=== PATIENT | male | born 1935 | race African-American/Black ===

== ENCOUNTER 2020-08-29 15:41 | Emergency (ER) | payer MEDICARE, SELFPAY ==
[2020-08-29] VITALS (8 sets, daily range): BP systolic 146–175; BP diastolic 75–80; PULSE 73–74; RESP 17–18; TEMP 35.9–36.9; O2SAT 99–100
--- NOTE | ~2020-08-29 | XR_ITS ---
EXAMINATION: XR abdomen obstructive series EXAM DATE: 08/29/2020 17:25 INDICATION: Constipation X 3 hours ago, right lower quadrant pain. Hemorrhoids. TECHNIQUE: Frontal upright projection of the upper abdomen, frontal projection of the lower abdomen f or interpretation. There is no prior study for comparison. FINDINGS: Moderate amount of colonic gas, small amount of stool. No small bowel dilation, nonobstru ctive bowel gas pattern. There are no suspicious calcifications identified. There is no organomeg ruma suspected. There are bony degenerative changes. There is no free intraperitoneal air. The l heidi bases are clear. IMPRESSION: Unremarkable abdomen x-ray exam. Reviewed, dictated and finalized at location A.
--- NOTE | 2020-08-29 17:55 | ED.GENADULT ---
HPI - General Adult General Chief complaint: Unspecified Stated complaint: Constipation 3-4 days Time Seen by Provider: 08/29/20 17:12 Source: patient Mode of arrival: ambulatory Limitations: no limitations History of Present Illness HPI narrative: This is a 84 year old male that presents to the ER for constipation. Reports ongoing problems with constipation. Reports his last bowel movement was 2 days ago. Reports he feels the need to have a bowel movement, but is unable to. He has been using suppositories with little relief. Denies fever, abdominal pain, hematochezia, vomiting, or dysuria. Related Data Home Medications Medication Instructions Recorded Confirmed apixaban [Eliquis] 5 mg PO BID 08/29/20 08/29/20 bimatoprost [Lumigan] 1 drp EACH EYE QPM 08/29/20 08/29/20 hydralazine 25 mg PO BID 08/29/20 08/29/20 pregabalin 300 mg PO BID 08/29/20 08/29/20 tamsulosin 0.8 mg PO HS 08/29/20 08/29/20 timolol maleate 1 drp EACH EYE BID 08/29/20 08/29/20 Allergies Allergy/AdvReac Type Severity Reaction Status Date / Time No Known Allergies Allergy Unknown Unverified 10/26/17 17:19 Review of Systems Review of Systems: Narrative: CONSTITUTIONAL: Denies fever GASTROINTESTINAL: Denies abdominal pain, nausea, vomiting GENITOURINARY: Denies dysuria All systems reviewed & are unremarkable except as noted in HPI and below PMFSH Past Medical History Medical History (Updated 08/29/20 @ 19:07 by Ester Holt PA-C) History of BPH History of CVA (cerebrovascular accident) History of DVT (deep vein thrombosis) History of hypertension Social History Social History Gender identity (if verbalized by the patient): Male Exam Narrative: Exam Narrative: GENERAL: Well-appearing, well-nourished, and in no acute distress. HEAD: Normocephalic, atraumatic. EYES: EOMI. CHEST: Clear to auscultation. No respiratory distress. No wheezes rales or rhonchi HEART: Regular rate and rhythm. No murmur heard. Normal peripheral pulses. ABDOMEN: Soft, nontender, nondistended, normal active bowel sounds. EXTREMITIES: Normal range of motion. No edema. SKIN: Warm, dry, no rash. NEURO: No focal deficits. Alert and oriented x3. PSYCH: Normal mood and affect RECTAL: No hemorrhoids or fissures present Course Vital Signs Vital signs: Vital Signs Temperature 96.6 F L 08/29/20 15:43 Pulse Rate 74 08/29/20 15:43 Respiratory Rate 17 08/29/20 15:43 Blood Pressure 174/80 H 08/29/20 15:43 Pulse Oximetry 100 08/29/20 15:43 Temperature 96.6 F L 08/29/20 15:43 Pulse Rate 74 08/29/20 15:43 Respiratory Rate 17 08/29/20 15:43 Blood Pressure 146/77 H 08/29/20 17:32 Pulse Oximetry 100 08/29/20 17:45 Medical Decision Making MDM Narrative Medical decision making narrative: Patient presents the emergency department for constipation. He is afebrile and nontoxic-appearing. Abdominal exam is benign. Abdomen x-ray is unremarkable. While in the ED patient was able to have a bowel movement and reports he feels better. Would like to be discharged. Was instructed to follow-up with his primary doctor. He was given warnings to return to the ER Vital Signs Vital Signs: Vital Signs Temperature 96.6 F L 08/29/20 15:43 Pulse Rate 74 08/29/20 15:43 Respiratory Rate 17 08/29/20 15:43 Blood Pressure 174/80 H 08/29/20 15:43 Pulse Oximetry 100 08/29/20 15:43 Temperature 96.6 F L 08/29/20 15:43 Pulse Rate 74 08/29/20 15:43 Respiratory Rate 17 08/29/20 15:43 Blood Pressure 146/77 H 08/29/20 17:32 Pulse Oximetry 100 08/29/20 17:45 Imaging Data Radiologist's impression: ITS Impressions Abdomen X-Ray 08/29/20 17:32 IMPRESSION: Unremarkable abdomen x-ray exam. Critical Care Time Critical Care Time Critical Care Time: No Discharge Plan Discharge Clinical Impression: Constipation Qualifiers: Constipation type: unspecified constipation type Qualified Code(s): K59.00 - C
[2020-08-29] MEDS: polyethylene glycoL 3350 17 GM POWD.PACK PO (18:29)
--- NOTE | 2020-08-29 19:36 | PC.NURSE ---
Pt presented to ED due to constipation and was able to successfully have a bowel movement. Pt states that he feels better and is ready to go home. Pt to call for ride back home and is prepared for dc. Pt noted to be alert and oriented x4, vitals are stable and pt in no obvious distress at this time.
== END 2020-08-29 19:40 | disposition home or self-care (01) ==
PROVIDERS: Emergency Provider Emergency Medicine
DX: K59.00 Constipation, unspecified (principal); N40.0 Benign prostatic hyperplasia without lower urinary tract symptoms; Z86.73 Personal history of transient ischemic attack (TIA), and cerebral infarction without residual deficits; Z86.718 Personal history of other venous thrombosis and embolism; I10 Essential (primary) hypertension
CPT/HCPCS: 74019; 99283

== ENCOUNTER 2021-07-29 11:11 | Observation (INO) | payer MEDICARE, SELFPAY ==
[2021-07-29] VITALS (16 sets, daily range): BP systolic 150–182; BP diastolic 75–99; PULSE 88–115; RESP 7–18; TEMP 36.7–37.5; O2SAT 92–99
--- NOTE | ~2021-07-29 | CT_ITS ---
EXAMINATION: CT abdomen pelvis w con INDICATION: Abdominal pain and vomiting TECHNIQUE: Computed tomographic images of the abdomen and pelvis were obtained after the administrati on of 100 cc of Omnipaque 350 intravenous contrast. The dose-length product (DLP) was 788.55 mGy-cm. Automated exposure control and iterative reconstruction technique were employed. COMPARISON: 03/14/2016 FINDINGS: Minimal dependent atelectasis is present in the lung bases. The heart size is normal. Bilat eral gynecomastia is noted. Cysts of the liver measure up to 1.3 cm the spleen, pancreas, and adrenal glands are normal. Stones are present in the nondistended gallbladder. Cysts of the kidneys measure up to 4.5 cm on the right. No pathologically enlarged abdominal or pelvic lymph nodes are identified. There is no free intraperitoneal gas or evidence of bowel obstruction. There is marked enlargement o f the prostate. The appendix is normal. There is a small umbilical hernia containing a short segment of the anterior wall of a small bowel loop. There is severe lumbar spondylosis at L4-5. IMPRESSION: 1. Small umbilical hernia containing a short segment of the anterior wall of a nonobstructed small wil wel loop. Reviewed, dictated and finalized at location A. IMPRESSION: 1. Small umbilical hernia containing a short segment of the anterior wall of a nonobstructed small bowel loop.
--- NOTE | ~2021-07-29 | XR_ITS ---
EXAMINATION: XR chest 1V portable DATE: 07/29/2021 12:05 INDICATION: Weakness. TECHNIQUE: A single frontal view of the chest was obtained. COMPARISON: Chest CT 11/22/2017 FINDINGS: There is mild atelectasis at the lung bases. No pleural effusion or pneumothorax. The heart size is normal. IMPRESSION: 1. Mild atelectasis at the lung bases. Reviewed, dictated and finalized at location A.
--- NOTE | 2021-07-29 11:28 | ECG_ITS ---
Measurements Intervals Fisher Rate: 90 P: 42 [place]: 228 QRS: -25 QRSD: 149 T: -16 QT: 382 QTc: 468 Interpretive Statements SINUS RHYTHM WITH FIRST DEGREE AV BLOCK WITH OCCASIONAL VENTRICULAR PREMATURE COMPLEXES POSSIBLE LEFT ATRIAL ENLARGEMENT [-0.1mV P WAVE IN V1/V2] BORDERLINE LEFT AXIS DEVIATION [QRS AXIS < -20] RIGHT BUNDLE BRANCH BLOCK POSSIBLE LEFT VENTRICULAR HYPERTROPHY [VOLTAGE CRITERIA PLUS LAE OR QRS WIDENING] ABNORMAL ECG NO PREVIOUS ECG AVAILABLE FOR COMPARISON Electronically Signed On 07-29-2021 16:59:29 CDT by Eloy Phipps M.D.
[2021-07-29 11:35] LABS: Glucose Point of Care 153 mg/dl (65-105)
[2021-07-29] MEDS: SODIUM CHLORIDE 0.9% IV 2,000 ML 999 ML IV CONT (11:49)
[2021-07-29] MEDS: ONDANSETRON INJ 4 MG/2 ML VIAL IV PUSH ×3 (11:50→17:13)
[2021-07-29 11:54] LABS: Basophils Absolute Auto 0.1 K/mm3 (0.0-0.1); Basophils Percent Auto 0.4 % (0.2-1.2); Hematocrit 48.1 % (42.0-52.0); Hemoglobin 15.9 g/dL (14.0-18.0); Immature Granulocyte Absolute 0.05 K/mm3 (0.00-0.031); Immature Granulocyte Percent A 0.4 % (0-0.5); Immature Platelet Fraction Pct 14.2 % (0.9-11.2); Lymphocytes Percent Auto 7.8 % (18.3-44.2); Mean Corpuscular HGB Conc 33.1 g/dl (32-36); Mean Corpuscular Hemoglobin 30.9 pg (26-34); Mean Corpuscular Volume 93.6 fl (80-100); Mean Platelet Volume 13.1 fl (7.4-10.4); Monocytes Absolute Auto 0.4 K/mm3 (0.1-0.6); Monocytes Percent Auto 2.6 % (2.6-8.5); Neutrophils Absolute Auto 12.5 K/mm3 (1.3-6.7); Neutrophils Percent Auto 88.8 % (45.5-73.1); Platelet Count Result 159 k/mm3 (150-375); Red Blood Count 5.14 M/mm3 (4.6-6.20); Red Cell Distribution Width 15.5 % (11.5-14.5); White Blood Count 14.1 K/mm3 (4.5-10.0)
--- NOTE | 2021-07-29 11:55 | PC.NURSE ---
Pt attempting to give urine sample at this time
[2021-07-29 12:01] LABS: Alanine Aminotransferase 18 U/L (4-50); Albumin Level 4.5 g/dL (3.5-5.1); Alkaline Phosphatase 76 U/L (38-126); Anion Gap 8 mmol/L (8-16); Aspartate Amino Transferase 43 U/L (17-59); Bilirubin,Total 0.7 mg/dL (0.2-1.3); Blood Urea Nitrogen 15 mg/dL (9-20); Calcium 9.9 mg/dL (8.4-10.2); Carbon Dioxide 27 mmol/L (22-30); Chloride 106 mmol/L (98-107); Estimated CRCL calculation 38 ml/min; Estimated Glomerular Filt Rate > 60; Glucose 168 mg/dL (65-110); Lactic Acid Reflex 2.5 mmol/L (0.7-2.1); Lipase 60 U/L (23-300); Sodium 141 mmol/L (137-145)
--- NOTE | 2021-07-29 12:22 | ED.NAVMDI ---
HPI - Nausea/Vomiting/Diarrhea General Chief complaint: Nausea/Vomiting/Diarrhea Stated complaint: vomiting Time Seen by Provider: 07/29/21 11:19 Source: patient and family Mode of arrival: wheelchair Limitations: other History of Present Illness HPI Narrative: This is an 85 year old male who presents for evaluation of nausea and vomiting. Patient's is at bedside to help with history. Patient states he is having difficulty talking due to weakness. Patient denies nausea, vomiting and upper abdominal pain this morning. He denies diarrhea. He denies chest pain or shortness of breath. Related Data Home Medications Medication Instructions Recorded Confirmed apixaban [Eliquis] 5 mg PO BID 08/29/20 07/29/21 pregabalin 300 mg PO BID 08/29/20 07/29/21 tamsulosin 0.4 mg PO HS 08/29/20 07/29/21 ascorbic acid (vitamin C) [Vitamin 500 mg PO DAILY 07/29/21 07/29/21 C] brinzolamide-brimonidine 1 drp EACH EYE DAILY 07/29/21 07/29/21 [Simbrinza] cholecalciferol (vitamin D3) 125 mcg PO DAILY 07/29/21 07/29/21 [Vitamin D3] finasteride 5 mg PO DAILY 07/29/21 07/29/21 latanoprost 1 drp EACH EYE HS 07/29/21 07/29/21 vitamin B complex [B Complex] 1 cap PO DAILY 07/29/21 07/29/21 Allergies Allergy/AdvReac Type Severity Reaction Status Date / Time No Known Allergies Allergy Unknown Unverified 07/29/21 11:52 Review of Systems Review of Systems: All systems reviewed & are unremarkable except as noted in HPI and below PMFSH Past Medical History Medical History (Updated 07/29/21 @ 20:35 by Naomi Abrams MD) History of BPH History of CVA (cerebrovascular accident) History of DVT (deep vein thrombosis) History of hypertension Surgical History Surgical History (Updated 07/29/21 @ 12:28 by Naomi Abrams MD) Previous back surgery Family History Family History (Updated 07/29/21 @ 18:04 by Lena Aguiar RN) Mother Alzheimer disease Sibling Cerebrovascular accident Social History Social History Smoking status: Never smoker Alcohol intake: never Substance use: never Gender identity (if verbalized by the patient): Male Spiritual care concerns: No Exam Const: General: alert and ill appearing Orientation/consciousness: patient oriented x3 Eyes: EOM: EOMs intact bilaterally Resp: Effort & Inspection: normal respiratory effort and no retractions Auscultation: clear to auscultation bilaterally Cardio: Rate: regular rate Rhythm: regular rhythm GI: GI Palp: Yes Soft to palpation, Yes Tenderness to palpation present (GI), No Guarding due to palpation present (GI) and No Rigid due to palpation Auscultation: Hypoactive bowel sounds present Neuro: General: patient oriented x3 and moves all extremities Psych: Mental Status: mental status grossly normal Affect: normal affect Course Reevaluation(s) Reevaluation #1: Patient still reports nausea. Labs shows some mild lactic acidosis and dehydration. Will admit for IVF. Non surgical abdominal exam. I have discussed with patient that he will be admitted. Date: 07/29/21 Time: 15:30 Vital Signs Vital signs: Vital Signs Temperature 98.0 F 07/29/21 11:19 Pulse Rate 98 07/29/21 11:19 Respiratory Rate 18 07/29/21 11:19 Blood Pressure 182/98 H 07/29/21 11:19 Pulse Oximetry 95 07/29/21 11:19 Temperature 99.0 F 07/29/21 19:39 Pulse Rate 108 H 07/29/21 19:39 Respiratory Rate 18 07/29/21 19:39 Blood Pressure 150/85 H 07/29/21 19:39 Pulse Oximetry 94 07/29/21 19:39 MDM - Nausea/Vomiting/Diarrhea Lab Data Attestation: I reviewed the patient's lab results. Result diagrams: 07/29/21 11:46 07/29/21 11:46 Labs: Lab Results 07/29/21 07/29/21 07/29/21 Range/Units 11:32 11:46 11:46 WBC 14.1 H (4.5-10.0) K/mm3 RBC 5.14 (4.6-6.20) M/mm3 Hgb 15.9 (14.0-18.0) g/dL Hct 48.1 (42.0-52.0) % MCV 93.6 (80-100) fl MCH 30.9 (26-34) p
[2021-07-29 12:28] LABS: Appearance Urine Clear (Clear); Bilirubin Urine Negative (Negative); Blood Urine 1+ (Negative); Color Urine Yellow (Yellow); Glucose Urine UA Negative (Negative); Ketones Urine Negative (Negative); Leukocyte Esterase Ur Negative LEU/UL (Negative); Nitrate Urine Negative (Negative); Protein Urine 3+ mg/dL (Negative); Specific Grav Ur >= 1.030 (1.001-1.035); Urobilinogen Urine 0.2 mg/dL (<2.0); pH Urine 5.5 (5.0-9.0)
[2021-07-29 12:34] LABS: Mucus Urine Rare /lpf; RBC Urine 0-2 /hpf (0-2); Squamous Epithelial Cell Urine Rare /hpf (Few)
[2021-07-29 12:40] LABS: Add Urine Microscopic? YES
[2021-07-29 14:50] LABS: Reflex Lactic Acid Yes or No Add Lactic
[2021-07-29 14:54] LABS: Influenza A QL RT-PCR Negative (Negative); Influenza B QL RT-PCR Negative (Negative); SARS-CoV-2 RNA PCR Negative
[2021-07-29 15:13] LABS: Lactic Acid 3.6 mmol/L (0.7-2.1)
[2021-07-29] MEDS: hydrALAZINE HCL 20 MG/ML VIAL 10 MG IV PUSH (15:23)
[2021-07-29] MEDS: SODIUM CHLORIDE 0.9% IV 1,000 ML 999 ML IV CONT (15:24)
[2021-07-29 15:58] LABS: Troponin I < 0.012 ng/mL (0.000-0.034)
[2021-07-29] MEDS: SODIUM CHLORIDE 0.9% IV 1,000 ML 125 ML IV CONT (17:41)
--- NOTE | 2021-07-29 17:56 | ADMGEN ---
This patient, Melissa Zaragoza, was admitted to Medical Room 253-01. Patient/family oriented to hospital policies and general routines including ID bracelet, bed and alarms, visiting hours, pain management, procedures, bathroom and other care routines, personal items, smoking policy, room service/diet, and visiting hours. Information on how to activate the Rapid Response Team has been discussed. Patient/Family are encouraged to report perceived risks to care and to ask questions if they do not understand what they are told or what they should do.
--- NOTE | 2021-07-29 20:04 | PM.IMHP ---
H&P: HPI History of Present Illness Date/Time: 07/29/21 20:04 Chief Complaint: Nausea and vomiting. Narrative: This is an 85-year-old male with past medical history significant for stroke, hypertension, benign prostatic hyperplasia, cholelithiasis. Patient was brought to the emergency room due to nausea and vomiting according to medical records and the time of my visit patient was not able to provide any history secondary to his stroke. According to history patient had nausea vomiting a CT of abdomen and pelvis was significant for cholelithiasis. At the time of my visit patient seemed to be fine he was resting comfortably in bed and did not show any signs of retging or dry heaving or been nauseated or vomiting, did not show any signs of pain as well. Preliminary workup was significant for lactic acid of 2.[address] of abdomen and pelvis showed a small hernia , an x-ray of the chest showed atelectasis. Patient was admitted for further evaluation, management and treatment. Review of Systems Review of Systems: ROS unobtainable: Yes unobtainable due to medical condition (A stroke, aphasia.) [facility] Past Medical History Medical History (Updated 07/30/21 @ 11:31 by Magnus Anaya MD) Cholelithiasis (Unknown) History of BPH History of CVA (cerebrovascular accident) History of DVT (deep vein thrombosis) History of hypertension Surgical History Surgical History Previous back surgery Family History Family History Mother Alzheimer disease Sibling Cerebrovascular accident Social History Social History Smoking status: Never smoker Alcohol intake: never Substance use: never Gender identity (if verbalized by the patient): Male Spiritual care concerns: No Meds Home Medications and Allergies Home Medications Medication Instructions Recorded Confirmed Type Eliquis 5 mg PO BID 08/29/20 07/29/21 History pregabalin 300 mg PO BID 08/29/20 07/29/21 History tamsulosin 0.4 mg PO HS 08/29/20 07/29/21 History Simbrinza 1 drp EACH EYE DAILY 07/29/21 07/29/21 History ascorbic acid (vitamin C) [Vitamin 500 mg PO DAILY 07/29/21 07/29/21 History C] cholecalciferol (vitamin D3) 125 mcg PO DAILY 07/29/21 07/29/21 History [Vitamin D3] finasteride 5 mg PO DAILY 07/29/21 07/29/21 History latanoprost 1 drp EACH EYE HS 07/29/21 07/29/21 History vitamin B complex 1 cap PO DAILY 07/29/21 07/29/21 History Allergies Allergy/AdvReac Type Severity Reaction Status Date / Time No Known Allergies Allergy Unknown Unverified 07/29/21 11:52 Vital Signs Vital Signs - 24 hr 07/29/21 11:19 07/29/21 11:45 07/29/21 11:47 Temperature 98.0 F Pulse Rate 98 89 90 Respiratory Rate 18 16 12 Blood Pressure 182/98 H 160/91 H 170/96 H Pulse Oximetry 95 92 92 07/29/21 11:51 07/29/21 12:35 07/29/21 12:46 Temperature Pulse Rate 94 92 92 Respiratory Rate 7 L 10 L Blood Pressure 170/87 H 178/94 H 177/98 H Pulse Oximetry 96 98 07/29/21 13:46 07/29/21 13:48 07/29/21 14:01 Temperature Pulse Rate 90 88 94 Respiratory Rate 13 18 14 Blood Pressure 172/94 H 172/94 H 182/99 H Pulse Oximetry 97 99 98 07/29/21 15:24 07/29/21 15:45 07/29/21 16:15 Temperature Pulse Rate 90 99 105 H Respiratory Rate 14 18 11 L Blood Pressure 165/95 H 154/88 H 162/97 H Pulse Oximetry 98 98 95 07/29/21 16:46 07/29/21 17:55 07/29/21 19:39 Temperature 99.5 F 99.0 F Pulse Rate 115 H 105 H 108 H Respiratory Rate 18 14 18 Blood Pressure 150/75 H 162/84 H 150/85 H Pulse Oximetry 98 97 94 Exam Narrative: Patient is laying in bed. Const: General: comfortable, no acute distress, well developed, alert, awake and other (Well-appearing) Nutritional Appearance: average body habitus Orientation/consciousness: patient oriented x3 HENMT: Head: normal to inspection, nor
[2021-07-29] MEDS: FAMOTIDINE 20 MG/2 ML VIAL IV PUSH (20:07)
[2021-07-29 21:24] LABS: Glucose Point of Care 115 mg/dl (65-105)
[2021-07-30 04:26] VITALS: BP 158/80; PULSE 90; RESP 18; TEMP 37.4; O2SAT 90
[2021-07-30] MEDS: SODIUM CHLORIDE 0.9% IV 1,000 ML 125 ML IV CONT (04:46)
[2021-07-30 06:13] LABS: Basophils Absolute Auto 0.1 K/mm3 (0.0-0.1); Basophils Percent Auto 0.4 % (0.2-1.2); Eosinophils Percent Auto 0.1 % (0-4.4); Hematocrit 40.4 % (42.0-52.0); Hemoglobin 13.7 g/dL (14.0-18.0); Immature Granulocyte Absolute 0.04 K/mm3 (0.00-0.031); Immature Granulocyte Percent A 0.3 % (0-0.5); Lymphocytes Absolute Auto 1.62 K/mm3 (0.9-3.2); Lymphocytes Percent Auto 13.8 % (18.3-44.2); Mean Corpuscular HGB Conc 33.9 g/dl (32-36); Mean Corpuscular Hemoglobin 31.1 pg (26-34); Mean Corpuscular Volume 91.6 fl (80-100); Monocytes Absolute Auto 1.4 K/mm3 (0.1-0.6); Monocytes Percent Auto 12.2 % (2.6-8.5); Neutrophils Absolute Auto 8.6 K/mm3 (1.3-6.7); Neutrophils Percent Auto 73.2 % (45.5-73.1); Platelet Count Result 140 k/mm3 (150-375); Red Blood Count 4.41 M/mm3 (4.6-6.20); Red Cell Distribution Width 15.3 % (11.5-14.5); White Blood Count 11.7 K/mm3 (4.5-10.0)
[2021-07-30 06:23] LABS: Alanine Aminotransferase 14 U/L (4-50); Albumin Level 3.3 g/dL (3.5-5.1); Alkaline Phosphatase 56 U/L (38-126); Anion Gap 6 mmol/L (8-16); Aspartate Amino Transferase 44 U/L (17-59); Bilirubin,Total 0.9 mg/dL (0.2-1.3); Blood Urea Nitrogen 12 mg/dL (9-20); Calcium 8.4 mg/dL (8.4-10.2); Carbon Dioxide 24 mmol/L (22-30); Chloride 110 mmol/L (98-107); Estimated CRCL calculation 41 ml/min; Estimated Glomerular Filt Rate > 60; Glucose 100 mg/dL (65-110); Potassium 3.6 mmol/L (3.4-5.0); Sodium 140 mmol/L (137-145)
[2021-07-30 07:34] LABS: Glucose Point of Care 90 mg/dl (65-105)
[2021-07-30 08:09] LABS: Lactic Acid Reflex 1.1 mmol/L (0.7-2.1)
[2021-07-30] MEDS: BRIMONIDINE TARTRATE 0.2% OP SOLN 5 ML BTL 1 DROP EACH EYE (08:19)
[2021-07-30] MEDS: BRINZOLAMIDE 1% OPHTH SUSP 10 ML 1 DROP EACH EYE (08:19)
[2021-07-30] MEDS: FAMOTIDINE 20 MG/2 ML VIAL IV PUSH (08:20)
--- NOTE | 2021-07-30 11:17 | PM.CNGS ---
Assessment and Plan Assessment and plan (1) Umbilical hernia without obstruction and without gangrene: Onset Date: Unknown Code(s): K42.9 - Umbilical hernia without obstruction or gangrene Status: Acute Assessment and Plan: patient cannot give a history regarding this hernia. I was able to reduce it easily and he did not complain pain as I examined it. CT showed that although a loop of bowel was coming directly underneath it there was no signs of obstruction in the area. At this time there is no indication he needs surgical intervention to address this. If patient has recurrent nausea and vomiting he may need to be considered for an upper GI or EGD to rule out gastritis or gastric outlet obstruction. However, CT scan did not seem to indicate any problems with the upper GI tract. (2) Cholelithiasis: Onset Date: Unknown Code(s): K80.20 - Calculus of gallbladder without cholecystitis without obstruction Status: Acute Assessment and Plan: Patient not able to give any history regarding this. Since he presented with nausea and vomiting so we need to keep this as a possibility for the cause. However, there was no comment by the radiologist regarding any signs of inflammatory change or gallbladder wall thickening on the CT. Simple cholelithiasis was noted. The patient does not have significant tenderness in the right upper quadrant but mild tenderness to palpation in the epigastrium. Recommend starting a full liquid diet and advancing to a low-fat diet to see how he does. History of Present Illness Consult details Consult date: 07/30/21 Reason for consult: hernia ( small umbilical hernia seen on CT) Requesting physician: Juan Cazares MD Narrative: The patient's chart reviewed and patient interviewed. 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 Denies significant abdominal pain at this time. Patient's nurse relates that he has not been nauseated. He has not had any vomiting today or reported through the night. When asked if he is hungry the patient does not seem to understand the question. Review of the patient's chart reveals that his brought him in possibly for nausea and vomiting but this had already seemed to improve in the ED. see ED and admission H&P notes. Review of Systems Review of Systems: ROS unobtainable: Yes unobtainable due to mental status Constitutional: Constitutional: Reports poor appetite Cardiovascular: Comments: Apparent history of previous CVA. Genitourinary: Comments: recorded history of previous and current known BPH. [facility], [facility] Past Medical History Medical History (Updated 07/30/21 @ 11:31 by Magnus Anaya MD) Cholelithiasis (Unknown) History of BPH History of CVA (cerebrovascular accident) History of DVT (deep vein thrombosis) History of hypertension Surgical History Surgical History Previous back surgery Family History Family History Mother Alzheimer disease Sibling Cerebrovascular accident Social History Social History Smoking status: Never smoker Alcohol intake: never Substance use: never Gender identity (if verbalized by the patient): Male Spiritual care concerns: No Meds Home Medications and Allergies Home Medications Medication Instructions Recorded Confirmed Type apixaban [Eliquis] 5 mg PO BID 08/29/20 07/29/21 History pregabalin 300 mg PO BID 08/29/20 07/29/21 History tamsulosin 0.4 mg PO HS 08/29/20 07/29/21 History ascorbic acid (vitamin C) [Vitamin 500 mg PO DAILY 07/29/21 07/29/21 History C] brinzolamide-brimonidine 1 drp EACH EYE DAILY 07/29/21 07/29/21 History [Simbrinza] cholecalciferol (vitamin D3) 125 mcg PO DAILY 07/29/21 07/29/21 History [Vitamin D3] finasteride 5 mg PO DAILY
[2021-07-30 11:42] LABS: Glucose Point of Care 87 mg/dl (65-105)
--- NOTE | 2021-07-30 12:35 | PC.NURSE ---
On 07/30/21, the student, [Lisbeth Augustin, Cody Lehman], provided care and completed [facility] documentation on this patient. I have reviewed the student's documentation and agree with the findings.
[2021-07-30 13:31] VITALS: BP 153/85; PULSE 73; RESP 17; TEMP 36.8; O2SAT 98
--- NOTE | 2021-07-30 14:26 | PM.DS ---
DS: Admitting Diagnosis Discharge Date 07/30/21 Admitting Diagnosis Nausea and vomiting DS: Discharge Diagnosis Discharge Diagnosis (1) Dehydration: Code(s): E86.0 - Dehydration Status: Acute (2) Intractable nausea and vomiting: Code(s): R11.2 - Nausea with vomiting, unspecified Status: Acute (3) Acidosis, lactic: Code(s): E87.2 - Acidosis Status: Acute (4) History of CVA (cerebrovascular accident): Code(s): Z86.73 - Personal history of transient ischemic attack (TIA), and cerebral infarction without residual deficits Status: Inactive (5) Cholelithiasis: Onset Date: Unknown Code(s): K80.20 - Calculus of gallbladder without cholecystitis without obstruction Status: Acute (6) Umbilical hernia without obstruction and without gangrene: Onset Date: Unknown Code(s): K42.9 - Umbilical hernia without obstruction or gangrene Status: Acute DS: Summary Hospital Course Reason for hospitalization: 85yo male with hx of CVA here for nausea and vomiting. Please see H&P for details. Hospital Course: Patient is brought to the emergency room for complaints of nausea and vomiting. Vital signs were stable. Blood pressure was elevated initially. Blood pressure did improved but remain mildly elevated. He is on a blood pressure medicine at home although this was not listed on his home medication list. Family was advised to continue blood pressure medication at home. White count was slightly elevated 14K but CBC otherwise unremarkable. White count improved. Comprehensive metabolic panel was normal except for elevated protein and glucose. Lactic acid level climbed to 3.6 before normalizing. Serum protein level and glucose levels normalized. UA did show 3+ protein and 1+ blood but without concerns for UTI. Influenza and COVID PCR were negative. CXR showed bibasilar atelectasis. CT abdomen pelvis showing small umbilical hernia containing a short segment of the anterior wall of a nonobstructed small bowel loop and gallstones. Clinically not felt to have acute cholecystitis. Umbilical hernia was reducible. Patient was started on IV fluids and diet started and advanced which he tolerated well. He has been up walking to the bathroom. states patient is not falling at home. He was having normal bowel movements and was passing flatus. Patient clinically improved. His is comfortable with discharge plan. Patient overall did well and was able to be discharged home on 07/30/2021. Status at Discharge Cognitive/behavioral status at discharge: Stable Time Spent with Patient Time attestation: Total time spent providing and/or coordinating discharge services:35 minutes Time spent: Greater than 30 minutes Exam Narrative: AF 98.3 153/85 73 17 98% ra Gen - NARD Chest - CTA anteriorly CV - RRR S1/S2 Abd - Soft, NT/ND, Positive BS Ext - No pedal edema Psych - Nml mood and affect Skin - Warm and dry DS: Data Data Completed and Pending Labs on day of discharge: Labs from last 24 hours 07/30/21 07/30/21 07/30/21 11:40 07:48 07:31 WBC RBC Hgb Hct MCV MCH MCHC RDW Plt Count MPV Immature Gran % (Auto) Neut % (Auto) Lymph % (Auto) [place] % (Auto) Eos % (Auto) Baso % (Auto) Lymph # (Auto) [place] # (Auto) Eos # (Auto) Baso # (Auto) Abs Immat Gran (auto) Absolute Neuts (auto) Absolute Nucleated RBC Nucleated RBC % Sodium Potassium Chloride Carbon Dioxide Anion Gap BUN Creatinine Estim Creat Clear Calc Estimated GFR Glucose POC Capillary Glucose 87 90 Lactic Acid 1.1 Calcium Total Bilirubin AST ALT Alkaline Phosphatase Troponin I Total Protein Albumin Influenza A (RT-PCR) Influenza B (RT-PCR) SARS-CoV-2 RNA (RT-PCR) 07/30/21 07/30/21 07/29/21 05:51 05:51 21:22 WBC 11.7 H
== END 2021-07-30 15:25 | disposition home or self-care (01) ==
LOC: ANHED 11:39 → ANH2MED 17:27
PROVIDERS: Admitting Provider Internal Medicine; Emergency Provider General Practice; Visit Provider Internal Medicine
DX: E86.0 Dehydration (principal); R11.2 Nausea with vomiting, unspecified; E87.2 Acidosis; K42.9 Umbilical hernia without obstruction or gangrene; K80.20 Calculus of gallbladder without cholecystitis without obstruction; I10 Essential (primary) hypertension; N40.0 Benign prostatic hyperplasia without lower urinary tract symptoms; Z20.822 Contact with and (suspected) exposure to COVID-19; Z86.718 Personal history of other venous thrombosis and embolism; Z86.73 Personal history of transient ischemic attack (TIA), and cerebral infarction without residual deficits; Z79.01 Long term (current) use of anticoagulants
CPT/HCPCS: 36415; 71045; 74177; 80053; 81001; 82948; 83605; 83690; 84484; 85025; 85055; 87502; 93005; 96361; 96374; 96375; 96376; 99285; A9270; C9803; G0378; J0360; J2405; J7030; Q9967; U0003; U0005

== ENCOUNTER 2022-01-04 16:08 | Emergency (ER) | payer MEDICARE, SELFPAY ==
--- NOTE | ~2022-01-04 | XR_ITS ---
EXAMINATION: XR chest 2V 01/04/2022 17:05 INDICATION: Left-sided chest pain PROCEDURE: 2 view chest COMPARISON: Comparison to multiple prior studies sequentially, with oldest reviewed study dated 01/16. FINDINGS: The lungs are clear. The cardiomediastinal silhouette is within normal limits. There are no pleural effusions. There is no pneumothorax suspected. IMPRESSION: 1: NO ACUTE CARDIOPULMONARY DISEASE. Reviewed, dictated and finalized at location A.
--- NOTE | 2022-01-04 16:12 | PC.NURSE ---
FAMILY MEMBER ADAMANTLY REFUSING EKG AT ER. HE JUST HAD ONE AT THE [facility] AND I DON'T WANT TO PAY FOR ANOTHER ONE
[2022-01-04 16:35] VITALS: BP 154/79; PULSE 56; RESP 20; TEMP 36.9; O2SAT 100
--- NOTE | 2022-01-04 17:23 | PC.NURSE ---
PT AND HIS FAMILY MEMBER ARE LEAVING. THIS IS TAKING WAY TOO LONG
== END 2022-01-04 16:12 | disposition left against medical advice (07) ==
PROVIDERS: Emergency Provider Emergency Medicine
DX: R07.9 Chest pain, unspecified (principal)
CPT/HCPCS: 71046; 99199

== ENCOUNTER 2022-08-04 15:05 | Emergency (ER) | payer MEDICARE, SELFPAY ==
[2022-08-04] VITALS (10 sets, daily range): BP systolic 127–172; BP diastolic 68–104; PULSE 61–83; RESP 16; TEMP 36.7; O2SAT 100
--- NOTE | ~2022-08-04 | CT_ITS ---
EXAMINATION: CT brain wo con DATE: 08/04/2022 16:04 INDICATION: Altered mental status TECHNIQUE: Computed tomography (CT) of the head was performed without intravenous contrast. The dose- length product was 605.33 mGy-cm. Automated exposure control and iterative reconstruction technique w ere employed. COMPARISON: CT dated 10/27/2027 FINDINGS: Generalized atrophy. There are scattered mild periventricular and subcortical white matter changes, most likely related to small vessel ischemic disease (microangiopathy). There is a chronic l eft thalamic infarction. No acute intracranial hemorrhage, infarction, mass or mass effect is mild in tracranial atherosclerosis. There is mild mucosal thickening of the ethmoid sinuses. Mastoids are pne umatized. No depressed skull fractures. IMPRESSION: 1. No acute intracranial abnormality. 2: Chronic left thalamic infarction. 3: Chronic age-related findings. Reviewed, dictated and finalized at location A.
--- NOTE | 2022-08-04 15:08 | ECG_ITS ---
Measurements Intervals [facility] Rate: 60 P: -1 VA: 216 QRS: -12 QRSD: 146 T: -5 QT: 419 QTc: 420 Interpretive Statements SINUS RHYTHM WITH FIRST DEGREE AV BLOCK RIGHT BUNDLE BRANCH BLOCK [120+ ms QRS DURATION, UPRIGHT V1, 40+ ms S IN I/aVL/V4/V5/V6] COMPARED TO ECG 07/29/2021 11:45:32 NO SIGNIFICANT CHANGES Electronically Signed On 08-04-2022 18:38:38 CDT by Josh Ferro M.D.
[2022-08-04 15:48] LABS: Glucose Point of Care 94 mg/dl (65-105)
--- NOTE | 2022-08-04 16:10 | ED.DIZZY ---
HPI - Dizziness General Chief Complaint: Dizziness Stated Complaint: dizziness Time Seen by Provider: 08/04/22 15:37 History of Present Illness HPI Narrative: 86-year-old male presented to the ED for evaluation of 3 episodes of intermittent dizziness. Patient states he has been working doing some sweeping when he had onset of lightheaded and dizziness. Patient denies any falls or injuries. Patient states his symptoms did improve with rest. Patient states that the episodes occurred over approximately 30-minute period. Patient states that upon arrival to the ED he does still have some mild dizziness. Patient denies any other complaints. Related Data Home Medications Medication Instructions Recorded Confirmed apixaban 5 mg tablet (Eliquis) 5 mg PO BID 08/29/20 07/29/21 pregabalin 300 mg capsule 300 mg PO BID 08/29/20 07/29/21 tamsulosin 0.4 mg capsule 0.4 mg PO HS 08/29/20 07/29/21 ascorbic acid (vitamin C) 500 mg 500 mg PO DAILY 07/29/21 07/29/21 tablet (Vitamin C) brinzolamide 1 %-brimonidine 0.2 % 1 drp EACH EYE DAILY 07/29/21 07/29/21 eye drops,suspension (Simbrinza) cholecalciferol (vitamin D3) 125 125 mcg PO DAILY 07/29/21 07/29/21 mcg (5,000 unit) tablet (Vitamin D3) finasteride 5 mg tablet 5 mg PO DAILY 07/29/21 07/29/21 latanoprost 0.005 % eye drops 1 drp EACH EYE HS 07/29/21 07/29/21 vitamin B complex 1 cap PO DAILY 07/29/21 07/29/21 Allergies Allergy/AdvReac Type Severity Reaction Status Date / Time No Known Allergies Allergy Unknown Unverified 08/04/22 16:23 Review of Systems Review of Systems: All systems reviewed & are unremarkable except as noted in HPI and below PMFSH Past Medical History Medical History (Updated 08/04/22 @ 20:28 by Daniel Roper MD) Cholelithiasis (Unknown) History of BPH History of CVA (cerebrovascular accident) History of DVT (deep vein thrombosis) History of hypertension Surgical History Surgical History (System 05/11/22 @ 11:38 by Nora Massey) Previous back surgery Family History Family History Mother Alzheimer disease Sibling Cerebrovascular accident Social History Social History (System 05/11/22 @ 11:38 by Nora Massey) Smoking status: Never smoker Alcohol intake: never Substance use: never Gender identity (if verbalized by the patient): Male Spiritual care concerns: No Exam Narrative: APPEARANCE: Well appearing, no pain, no distress, well-nourished. HEAD: normocephalic, atraumatic. EYES: PERRLA/EOMI, conjunctivae clear. NOSE: Normal no drainage EARS:TMS clear with good light reflex. NECK: Supple. No adenopathy, no masses. RESPIRATORY: Airway patent, respirations nonlabored. Clear to auscultation bilaterally, no rales, rhonchi, wheezing. CARDIOVASCULAR: Regular rate and rhythm without murmurs rubs or gallops. ABDOMINAL: Soft, nontender, nondistended, normal bowel sounds MUSCULOSKELETAL: Moves all extremities. Strength/ROM intact, No edema, No calf tenderness. NEURO: Alert. Cranial nerves II through XII intact. Good gait. Good coordination. Patient states no change in his chronic right-sided weakness related to his prior CVA SKIN: Warm, dry. Normal Color Course Course Emergency Course: 86-year-old male presenting to the ED for evaluation of dizziness and lightheadedness. Patient had an assault vital signs for orthostatic. Patient was treated with 1 L of IV fluids and did have some minor improvement. Patient was treated with a second liter of IV fluids and had further improvement. Patient is afebrile with no leukocytosis. Patient's hemoglobin is 13.8. Patient's CMP is similar to his baseline, patient's normal creatinine is in the 1.3-1.2 range and patient's creatinine today was 1.4. Head CT showed no acute intracranial abnormality. 8:27 PM. Patient was treated with a second liter of normal saline and patient had repeat orthostatic vitals. Patient states he
[2022-08-04] MEDS: SODIUM CHLORIDE 0.9% IV 1,000 ML 999 ML IV CONT ×2 (16:22→18:57)
[2022-08-04 16:26] LABS: Basophils Absolute Auto 0.1 K/mm3 (0.0-0.1); Basophils Percent Auto 0.7 % (0.2-1.2); Eosinophils Absolute Auto 0.1 K/mm3 (0-0.3); Eosinophils Percent Auto 1.6 % (0-4.4); Hematocrit 42.7 % (42.0-52.0); Hemoglobin 13.8 g/dL (14.0-18.0); Immature Granulocyte Absolute 0.01 K/mm3 (0.00-0.031); Immature Granulocyte Percent A 0.1 % (0-0.5); Lymphocytes Absolute Auto 2.19 K/mm3 (0.9-3.2); Lymphocytes Percent Auto 31.2 % (18.3-44.2); Mean Corpuscular HGB Conc 32.3 g/dl (32-36); Mean Corpuscular Hemoglobin 30.9 pg (26-34); Mean Corpuscular Volume 95.7 fl (80-100); Mean Platelet Volume 12.7 fl (7.4-10.4); Monocytes Absolute Auto 0.8 K/mm3 (0.1-0.6); Monocytes Percent Auto 11.8 % (2.6-8.5); Neutrophils Absolute Auto 3.8 K/mm3 (1.3-6.7); Neutrophils Percent Auto 54.6 % (45.5-73.1); Platelet Count Result 132 k/mm3 (150-375); Red Blood Count 4.46 M/mm3 (4.6-6.20); Red Cell Distribution Width 14.1 % (11.5-14.5)
[2022-08-04 16:34] LABS: Alanine Aminotransferase 21 U/L (6-50); Alkaline Phosphatase 51 U/L (38-126); Anion Gap 3 mmol/L (8-16); Aspartate Amino Transferase 39 U/L (17-59); Bilirubin,Total 0.6 mg/dL (0.2-1.3); Blood Urea Nitrogen 17 mg/dL (9-20); Calcium 9.5 mg/dL (8.4-10.2); Carbon Dioxide 31 mmol/L (22-30); Chloride 106 mmol/L (98-107); Estimated CRCL calculation 32 ml/min; Estimated Glomerular Filt Rate 58; Glucose 78 mg/dL (65-110); Sodium 140 mmol/L (137-145)
== END 2022-08-04 21:01 | disposition home or self-care (01) ==
PROVIDERS: Emergency Medicine; Emergency Provider Emergency Medicine
DX: I95.1 Orthostatic hypotension (principal); Z86.718 Personal history of other venous thrombosis and embolism; Z86.73 Personal history of transient ischemic attack (TIA), and cerebral infarction without residual deficits; I44.0 Atrioventricular block, first degree; I45.10 Unspecified right bundle-branch block; Z79.01 Long term (current) use of anticoagulants
CPT/HCPCS: 36415; 70450; 80053; 82948; 85025; 93005; 96360; 96361; 99284; J7030

== ENCOUNTER 2023-02-22 17:43 | Emergency (ER) | payer MEDICARE, SELFPAY ==
[2023-02-22 18:02] VITALS: BP 134/77; PULSE 71; RESP 20; TEMP 36.3; O2SAT 100
--- NOTE | 2023-02-22 19:03 | PC.NURSE ---
called patient to take to room, no answer
--- NOTE | 2023-02-22 19:11 | PC.NURSE ---
no answer. patient left without seeing provider
== END 2023-02-22 19:16 | disposition left against medical advice (07) ==
PROVIDERS: PCP Internal Medicine Infectious Disease
DX: R30.0 Dysuria (principal)
CPT/HCPCS: 99199

== ENCOUNTER 2023-10-01 05:45 | Emergency (ER) | payer MEDICARE, SELFPAY ==
[2023-10-01] VITALS (8 sets, daily range): BP systolic 140–153; BP diastolic 76–82; PULSE 58–68; RESP 11–19; TEMP 36.4; O2SAT 95–100
--- NOTE | ~2023-10-01 | CT_ITS ---
EXAMINATION: CT cervical spine wo con DATE: 10/01/2023 06:10 INDICATION: Fall with head injury TECHNIQUE: Computed tomography (CT) of the cervical spine was performed without intravenous contrast. Automated exposure control and iterative reconstruction technique were employed. The dose-length pro duct was 359.26 mGy-cm. COMPARISON: None FINDINGS: Straightening of the normal cervical lordosis. No spondylolisthesis or facet subluxation. C4-C5 anter ior spinal fusion with interbody fusion device. There is additional anterior spinal fusion at C6-C7 a nd C7-T1 without instrumentation. There is also posterior fusion across the bilateral facet joints at C4-C5, C7-T1 and on the left at C6-C7. Vertebral body heights are normal. No fracture. Severe disc h eight loss at the unfused C3-C4 and C5-C6 segments and moderate disc height loss at C2-C3 and multipl e levels in the upper thoracic spine. There is severe facet osteoarthritis on the right at T1-T2 with mild to moderate facet osteoarthritis the remaining unfused cervical and upper thoracic segments. Th is along with hypertrophic change at the uncovertebral joints results in multilevel bilateral moderat e neural foraminal stenosis. Posterior disc ossified complexes resulting in multilevel mild central c anal stenosis throughout the cervical and upper thoracic spine. Atherosclerotic calcifications at cee ateral carotid bulbs. Cervical soft tissues are otherwise unremarkable. The visualized apices of the lungs are clear. IMPRESSION: 1. Severe cervical spondylosis. No acute osseous abnormality. Reviewed, dictated and finalized at location A.
--- NOTE | ~2023-10-01 | XR_ITS ---
EXAMINATION: XR chest 1V portable DATE: 10/01/2023 06:23 INDICATION: Dizziness TECHNIQUE: frontal view of the chest was obtained. COMPARISON: Chest radiograph dated 01/04/2022 FINDINGS: Mild bibasilar atelectasis. No other airspace opacities, pulmonary edema, pleural effusion or pneumot horax. The cardiomediastinal silhouette is normal. IMPRESSION: 1. Mild bibasilar atelectasis. Reviewed, dictated and finalized at location A.
--- NOTE | ~2023-10-01 | CT_ITS ---
EXAMINATION: CT brain wo con DATE: 10/01/2023 06:10 INDICATION: Fall with head injury TECHNIQUE: Computed tomography (CT) of the head was performed without intravenous contrast. Sagittal and coronal reconstructions were performed. The mA was adjusted according to patient size. Iterative reconstruction technique was employed. The dose-length product was 605.33 mGy-cm. COMPARISON: head CT dated 08/04/2022 FINDINGS: Left frontal linear scalp scar versus contusion. No fracture. Small old lacunar infarct at the left t halamus. No acute intracranial hemorrhage, acute infarction or abnormal extra axial fluid collection. There is moderate scattered white matter hypoattenuation consistent with chronic small vessel ischem ic disease. Symmetric prominence of the sulci consistent with mild to moderate age-appropriate diffus e cerebral volume loss. Ventricles are normal and symmetric. No mass/mass effect. Changes of bilater al intraocular lens replacement. The orbits and mastoid air cells are normal. Mild to moderate mucosa l thickening in the bilateral maxillary and ethmoid sinuses. IMPRESSION: 1. No fracture or acute intracranial process. 2. Age-related changes including mild to moderate diffuse volume loss and moderate scattered white ma tter hypoattenuation consistent with chronic small vessel ischemic disease. Reviewed, dictated and finalized at location A. IMPRESSION: 1. No fracture or acute intracranial process. 2. Age-related changes including mild to moderate diffuse volume loss and moder ate scattered white matter hypoattenuation consistent with chronic small vessel ischemic disease.
--- NOTE | 2023-10-01 05:47 | ECG_ITS ---
Test Date: 2023-10-01 05:47:44 Measurements Intervals [place] Rate: 50 P: 9 ID: [id number] QRS: -2 QRSD: 154 T: -21 QT: 436 QTc: 399 Interpretive Statements SINUS BRADYCARDIA WITH SINUS ARRHYTHMIA WITH FIRST DEGREE AV BLOCK INTRAVENTRICULAR CONDUCTION DELAY [130+ ms QRS DURATION] No previous ECG available for comparison Electronically Signed On 10-01-2023 13:04:20 CDT by Channing Pearson M.D.
[2023-10-01 06:02] LABS: Basophils Percent Auto 0.8 % (0.2-1.2); Eosinophils Absolute Auto 0.2 K/mm3 (0-0.3); Eosinophils Percent Auto 3.1 % (0-4.4); Hematocrit 42.8 % (42.0-52.0); Hemoglobin 14.6 g/dL (14.0-18.0); Immature Granulocyte Absolute 0.01 K/mm3 (0.00-0.031); Immature Granulocyte Percent A 0.2 % (0-0.5); Lymphocytes Absolute Auto 1.62 K/mm3 (0.9-3.2); Lymphocytes Percent Auto 33.1 % (18.3-44.2); Mean Corpuscular HGB Conc 34.1 g/dl (32-36); Mean Corpuscular Hemoglobin 31.7 pg (26-34); Mean Corpuscular Volume 92.8 fl (80-100); Mean Platelet Volume 12.7 fl (7.4-10.4); Monocytes Absolute Auto 0.6 K/mm3 (0.1-0.6); Monocytes Percent Auto 12.3 % (2.6-8.5); Neutrophils Absolute Auto 2.5 K/mm3 (1.3-6.7); Neutrophils Percent Auto 50.5 % (45.5-73.1); Platelet Count Result 118 k/mm3 (150-375); Red Blood Count 4.61 M/mm3 (4.6-6.20); Red Cell Distribution Width 14.7 % (11.5-14.5); White Blood Count 4.9 K/mm3 (4.5-10.0)
[2023-10-01 06:20] LABS: Alanine Aminotransferase 17 U/L (6-50); Albumin Level 3.9 g/dL (3.5-5.1); Alkaline Phosphatase 45 U/L (38-126); Anion Gap 5 mmol/L (4-12); Aspartate Amino Transferase 54 U/L (17-59); Bilirubin,Total 0.9 mg/dL (0.2-1.3); Blood Urea Nitrogen 16 mg/dL (9-20); Calcium 9.5 mg/dL (8.4-10.2); Carbon Dioxide 23 mmol/L (22-30); Chloride 110 mmol/L (98-107); Estimated CRCL calculation 34 ml/min; Estimated Glomerular Filt Rate > 60; Glucose 105 mg/dL (65-110); Potassium 4.3 mmol/L (3.4-5.0); Sodium 138 mmol/L (137-145)
--- NOTE | 2023-10-01 07:10 | PC.NURSE ---
report given to cat rn at this time. pt resting comfortably in bed. call light within reach.
--- NOTE | 2023-10-01 07:22 | ED.DIZZY ---
HPI - Dizziness General Chief Complaint: Dizziness Stated Complaint: dizzy, fall Time Seen by Provider: 10/01/23 06:51 History of Present Illness HPI Narrative: 79-year-old male with history of vertigo presents to the emergency department for evaluation after 2 episodes of dizziness/vertigo. Patient reports yesterday he had a fall secondary to the dizziness. Patient states this morning he was walking back from the bathroom had onset of dizziness and fell striking his head. Patient denies loss of consciousness. Patient denies any other pain or injury. Patient states he has been eating and drinking well and denies any recent illnesses coughs colds or fevers. Related Data Home Medications Medication Instructions Recorded Confirmed apixaban 5 mg tablet (Eliquis) 5 mg PO BID 08/29/20 07/29/21 pregabalin 300 mg capsule 300 mg PO BID 08/29/20 07/29/21 tamsulosin 0.4 mg capsule 0.4 mg PO HS 08/29/20 07/29/21 ascorbic acid (vitamin C) 500 mg 500 mg PO DAILY 07/29/21 07/29/21 tablet (Vitamin C) brinzolamide 1 %-brimonidine 0.2 % 1 drp EACH EYE DAILY 07/29/21 07/29/21 eye drops,suspension (Simbrinza) cholecalciferol (vitamin D3) 125 125 mcg PO DAILY 07/29/21 07/29/21 mcg (5,000 unit) tablet (Vitamin D3) finasteride 5 mg tablet 5 mg PO DAILY 07/29/21 07/29/21 latanoprost 0.005 % eye drops 1 drp EACH EYE HS 07/29/21 07/29/21 vitamin B complex 1 cap PO DAILY 07/29/21 07/29/21 Allergies Allergy/AdvReac Type Severity Reaction Status Date / Time No Known Allergies Allergy Unknown Verified 02/22/23 18:05 Review of Systems Review of Systems: All systems reviewed & are unremarkable except as noted in HPI and below PMFSH Past Medical History Medical History (Updated 10/01/23 @ 08:52 by Daniel Roper MD) Cholelithiasis (Unknown) History of BPH History of CVA (cerebrovascular accident) History of DVT (deep vein thrombosis) History of hypertension Surgical History Surgical History (System 05/11/22 @ 11:38 by Nora Massey) Previous back surgery Family History Family History Mother Alzheimer disease Sibling Cerebrovascular accident Social History Social History (System 05/11/22 @ 11:38 by Nora Massey) Smoking status: Never smoker Alcohol intake: never Substance use: never Gender identity (if verbalized by the patient): Male Spiritual care concerns: No Exam Narrative: APPEARANCE: Well appearing, no pain, no distress, well-nourished. HEAD: normocephalic, contusion to scalp. EYES: PERRLA/EOMI, conjunctivae clear. NOSE: Normal no drainage EARS:TMS clear with good light reflex. THROAT: Pharynx clear, no exudate. NECK: Supple. No adenopathy, no masses. RESPIRATORY: Airway patent, respirations nonlabored. Clear to auscultation bilaterally, no rales, rhonchi, wheezing. CARDIOVASCULAR: Regular rate and rhythm without murmurs rubs or gallops. ABDOMINAL: Soft, nontender, nondistended, normal bowel sounds MUSCULOSKELETAL: Moves all extremities. Strength/ROM intact, No edema, No calf tenderness. NEURO: Alert. Cranial nerves II through XII intact. Grossly intact SKIN: Warm, dry. Normal Color Course Vital Signs Vital signs: Vital Signs Temperature 97.6 F 10/01/23 05:44 Pulse Rate 58 L 10/01/23 05:44 Respiratory Rate 18 10/01/23 05:44 Blood Pressure 153/77 H 10/01/23 05:44 Pulse Oximetry 98 10/01/23 05:44 Oxygen Delivery Room Air 10/01/23 05:44 Temperature 97.6 F 10/01/23 05:44 Pulse Rate 60 10/01/23 08:01 Respiratory Rate 12 10/01/23 08:01 Blood Pressure 140/80 10/01/23 08:01 Pulse Oximetry 98 10/01/23 08:01 Oxygen Delivery Room Air 10/01/23 05:44 MDM - Dizziness MDM Narrative Medical decision making narrative: 87-year-old male presents emergency department for evaluation for vertigo. Patient was treated with p.o. meclizine. Patient is afebrile with no leukocytosis and
[2023-10-01] MEDS: MECLIZINE HCL 25 MG TABLET PO (07:34)
[2023-10-01] MEDS: ONDANSETRON INJ 4 MG/2 ML VIAL IV PUSH (08:18)
[2023-10-01] MEDS: ACETAMINOPHEN 500 MG TABLET 1000 MG PO (09:13)
== END 2023-10-01 09:21 | disposition home or self-care (01) ==
PROVIDERS: Emergency Medicine; Emergency Provider Emergency Medicine; PCP Internal Medicine Infectious Disease
DX: R42 Dizziness and giddiness (principal); I10 Essential (primary) hypertension; Z86.73 Personal history of transient ischemic attack (TIA), and cerebral infarction without residual deficits; Z86.718 Personal history of other venous thrombosis and embolism; W18.39XA Other fall on same level, initial encounter
CPT/HCPCS: 36415; 70450; 71045; 72125; 80053; 85025; 93005; 96374; 99284; A9270; J2405

== ENCOUNTER 2024-02-09 20:46 | Observation (INO) | payer MEDICARE, SELFPAY ==
--- NOTE | ~2024-02-09 | CT_ITS ---
EXAMINATION: CT abdomen pelvis w con DATE: 02/10/2024 00:30 INDICATION: Abdominal pain. Back pain. TECHNIQUE: Computed tomography (CT) of the abdomen and pelvis was performed with 100 mL Omnipaque 350 intravenous contrast. Automated exposure control and iterative reconstruction technique were employe d. The dose-length product was 744.18 mGy-cm. COMPARISON: CT abdomen and pelvis 07/29/21 FINDINGS: The visualized portions of the lung bases demonstrate mild atelectasis. No pleural effusion . The heart size is normal. No pericardial effusion. There is bilateral gynecomastia. There are cysts in the liver measuring up to 12 mm. There are gallstones in the gallbladder, which is normal in size . The spleen, pancreas, and adrenal glands are normal. There is a 5.2 cm cyst in right kidney. There is cortical thinning of left kidney. There is a 1.8 cm cyst in left kidney. There is an umbilical her alex containing fat. The prostate is severely enlarged. There is diverticulosis of the colon without e vidence of diverticulitis. The appendix is normal. There are no dilated loops of bowel. There are no pathologically enlarged lymph nodes. There is no free intraperitoneal fluid. There is severe thoracic and lumbar spondylosis. IMPRESSION: 1. Umbilical hernia containing fat. Reviewed, dictated and finalized at location A.
--- NOTE | ~2024-02-09 | XR_ITS ---
XR chest 2V Ordering provider: Dashawn Cerna MD History: 88 years Male with . weakness . Comparison: October 01, 2023 FINDINGS: MEDIASTINUM: The cardiac silhouette is not enlarged. LUNGS: No effusions or pneumothorax. Prominent markings in the lower lobes with possible infiltrate i n the left lower lobe suggestive of atelectasis versus pneumonia. OTHER: No free air under the diaphragm. Osteophyte Formation seen from the inferior aspect of the clavicle with pseudoarthrosis with the scap bari. Degenerative the spine. IMPRESSION: Bilateral basilar atelectasis versus pneumonia more on the left side Reviewed, dictated and finalized at location A.
--- NOTE | ~2024-02-09 | CT_ITS ---
EXAMINATION: CT brain wo con DATE: 02/10/2024 00:29 INDICATION: Altered mental status. TECHNIQUE: Computed tomography (CT) of the head was performed without intravenous contrast. The mA wa s adjusted according to patient size. Iterative reconstruction technique was employed. The dose-lengt h product was 681.00 mGy-cm. COMPARISON: Head CT 10/01/2023 FINDINGS: There is an old infarct in left thalamus. There are scattered areas of low attenuation in t he cerebral white matter. There is no intracranial hemorrhage, acute infarction, or abnormal intracra nial mass lesion. The ventricles are normal in size. There are likely changes of ocular lens replacem ent surgeries. There is mucosal thickening in the paranasal sinuses. The mastoid air cells are normal . IMPRESSION: 1. Old infarct in the left thalamus. 2. Stable extensive nonspecific cerebral white matter disease, which likely represents chronic small vessel ischemic disease. Reviewed, dictated and finalized at location A. IMPRESSION: 1. Old infarct in the left thalamus. 2. Stable extensive nonspecific cerebral white matter disease, which likely rep resents chronic small vessel ischemic disease.
[2024-02-09 21:03] VITALS: BP 151/120; PULSE 72; RESP 15; TEMP 36.6; O2SAT 99
--- NOTE | 2024-02-09 21:08 | ECG_ITS ---
Test Date: 2024-02-09 21:12:35 Measurements Intervals [place] Rate: 73 P: 23 AK: 219 QRS: 2 QRSD: 146 T: -24 QT: 395 QTc: 438 Interpretive Statements SINUS RHYTHM WITH FIRST DEGREE AV BLOCK WITH FREQUENT VENTRICULAR PREMATURE COMPLEXES POSSIBLE LEFT ATRIAL ENLARGEMENT [-0.1mV P WAVE IN V1/V2] RIGHT BUNDLE BRANCH BLOCK [120+ ms QRS DURATION, UPRIGHT V1, 40+ ms S IN I/aVL/V4/V5/V6] ABNORMAL ECG Compared to ECG 10/01/2023 05:47:44 Ventricular premature complex(es) now present Right bundle-branch block now present T-wave abnormality now present Intraventricular conduction delay no longer present Electronically Signed On 02-10-2024 13:12:25 CDT by Eloy Phipps M.D.
[2024-02-09 21:31] LABS: Basophils Absolute Auto 0.1 K/mm3 (0.0-0.1); Basophils Percent Auto 0.6 % (0.2-1.2); Eosinophils Absolute Auto 0.1 K/mm3 (0-0.3); Eosinophils Percent Auto 0.6 % (0-4.4); Hematocrit 48.6 % (42.0-52.0); Hemoglobin 16.1 g/dL (14.0-18.0); Immature Granulocyte Absolute 0.02 K/mm3 (0.00-0.031); Immature Granulocyte Percent A 0.3 % (0-0.5); Immature Platelet Fraction Pct 12.9 % (0.9-11.2); Lymphocytes Absolute Auto 1.71 K/mm3 (0.9-3.2); Mean Corpuscular HGB Conc 33.1 g/dl (32-36); Mean Corpuscular Hemoglobin 31.3 pg (26-34); Mean Corpuscular Volume 94.6 fl (80-100); Mean Platelet Volume 13.1 fl (7.4-10.4); Monocytes Absolute Auto 0.9 K/mm3 (0.1-0.6); Monocytes Percent Auto 11.7 % (2.6-8.5); Neutrophils Absolute Auto 5.1 K/mm3 (1.3-6.7); Neutrophils Percent Auto 64.8 % (45.5-73.1); Platelet Count Result 123 k/mm3 (150-375); Red Blood Count 5.14 M/mm3 (4.6-6.20); Red Cell Distribution Width 13.9 % (11.5-14.5); White Blood Count 7.8 K/mm3 (4.5-10.0)
[2024-02-09 21:40] LABS: Alanine Aminotransferase 21 U/L (6-50); Albumin Level 4.6 g/dL (3.5-5.1); Alkaline Phosphatase 59 U/L (38-126); Anion Gap 9 mmol/L (4-12); Aspartate Amino Transferase 48 U/L (17-59); Bilirubin,Total 1.1 mg/dL (0.2-1.3); Blood Urea Nitrogen 20 mg/dL (9-20); Calcium 10.3 mg/dL (8.4-10.2); Carbon Dioxide 26 mmol/L (22-30); Chloride 105 mmol/L (98-107); Estimated CRCL calculation 31 ml/min; Estimated Glomerular Filt Rate 58; Glucose 104 mg/dL (65-110); Potassium 4.2 mmol/L (3.4-5.0); Sodium 140 mmol/L (137-145)
--- NOTE | 2024-02-09 22:48 | PC.NURSE ---
Pt states he does not have to urinate at this time, but is aware that MD would like a urine sample.
[2024-02-09 23:00] VITALS: PULSE 75; RESP 8; O2SAT 100
--- NOTE | 2024-02-09 23:14 | PC.NURSE ---
Report received from FARTUN Nelson. Assumed care of patient at this time.
--- NOTE | 2024-02-09 23:14 | PC.NURSE ---
Pt informed this RN that she found a previously prescribed fentanyl patch that she placed on the pt lower back x2 days ago. Per , pt increased weakness started after patch application. She believes is was removed this morning but isn't sure. Upon inspection, no fentanyl patch on lower back. Pt RR 8, 02 99%. Pt is drowsy. Airway currently protected. MD Alcant[place] notified. Per MD, no additional interventions at this time. Report given to FARTUN Ardon. Care to transfer at this time.
[2024-02-09 23:15] VITALS: BP 180/102; PULSE 80; RESP 8; O2SAT 99
[2024-02-09 23:24] VITALS: PULSE 73; RESP 10; O2SAT 97
[2024-02-09 23:30] VITALS: PULSE 73; RESP 13; O2SAT 98
[2024-02-09 23:45] VITALS: PULSE 76; RESP 8; O2SAT 95
[2024-02-10] VITALS (22 sets, daily range): BP systolic 121–174; BP diastolic 59–99; PULSE 73–90; RESP 6–20; TEMP 36.1–36.9; O2SAT 96–100
[2024-02-10 00:15] LABS: Lipase 205 U/L (23-300); Magnesium 1.9 mg/dL (1.6-2.3)
[2024-02-10 00:25] LABS: NT Pro B Type Natriuretic Pept 119 pg/mL (19.9-100); Troponin I < 0.012 ng/mL (0.000-0.034)
[2024-02-10 01:03] LABS: Lactic Acid Reflex 1.2 mmol/L (0.7-2.0)
[2024-02-10 01:19] LABS: Influenza A QL RT-PCR Negative (Negative); Influenza B QL RT-PCR Negative (Negative); RSV RNA, RT-PCR Negative (Negative); SARS-CoV-2 RNA PCR Negative (Negative)
[2024-02-10 02:22] LABS: Add Urine Microscopic? YES; Appearance Urine Clear (Clear); Bacteria Urine None Seen /hpf; Bilirubin Urine Negative (Negative); Blood Urine Negative (Negative); Color Urine Yellow (Yellow); Glucose Urine UA Negative (Negative); Ketones Urine Trace mg/dL (Negative); Leukocyte Esterase Ur Negative LEU/UL (Negative); Nitrate Urine Negative (Negative); Non Pathogenic Casts 0-2; Protein Urine Trace mg/dL (Negative); RBC Urine 0-2 /hpf (0-2); Specific Grav Ur 1.041 (1.001-1.035); Squamous Epithelial Cell Urine None Seen /hpf (Few); Urobilinogen Urine 0.2 mg/dL (<2.0); WBC Urine 0-5 /hpf (0-3); pH Urine 5.5 (5.0-9.0)
--- NOTE | 2024-02-10 03:20 | ED_ITS ---
HPI - General Adult General Chief complaint: Weakness Stated complaint: HTN, weakness, decresed apetitie Time Seen by Provider: 02/09/24 23:44 History of Present Illness HPI narrative: Patient is a 88-year-old gentleman presents emergency department with chief complaint of weakness and confusion the patient's family reports he has not really been eating and drinking over the last several days and has been confused for at least 3-4 days. The patient reports no trauma reports no fever that noticed that his blood pressure has been elevated Related Data Home Medications Medication Instructions Recorded Confirmed apixaban 5 mg tablet (Eliquis) 5 mg PO BID 08/29/20 07/29/21 pregabalin 300 mg capsule 300 mg PO BID 08/29/20 07/29/21 tamsulosin 0.4 mg capsule 0.4 mg PO HS 08/29/20 07/29/21 ascorbic acid (vitamin C) 500 mg 500 mg PO DAILY 07/29/21 07/29/21 tablet (Vitamin C) brinzolamide 1 %-brimonidine 0.2 % 1 drp EACH EYE DAILY 07/29/21 07/29/21 eye drops,suspension (Simbrinza) cholecalciferol (vitamin D3) 125 125 mcg PO DAILY 07/29/21 07/29/21 mcg (5,000 unit) tablet (Vitamin D3) finasteride 5 mg tablet 5 mg PO DAILY 07/29/21 07/29/21 latanoprost 0.005 % eye drops 1 drp EACH EYE HS 07/29/21 07/29/21 vitamin B complex 1 cap PO DAILY 07/29/21 07/29/21 Allergies Allergy/AdvReac Type Severity Reaction Status Date / Time No Known Allergies Allergy Unknown Verified 02/22/23 18:05 Review of Systems Review of Systems: A 10 system review of systems was completed on the patient and is negative except for what is stated in the HPI. Nursing and ancillary documentation was reviewed. FOR[facility]LY [facility] Past Medical History Medical History Cholelithiasis (Unknown) History of BPH History of CVA (cerebrovascular accident) History of DVT (deep vein thrombosis) History of hypertension Surgical History Surgical History Previous back surgery Family History Family History Mother Alzheimer disease Sibling Cerebrovascular accident Social History Social History Smoking status: Never smoker Alcohol intake: never Substance use: never Gender identity (if verbalized by the patient): Male Spiritual care concerns: No Exam Narrative: GENERAL: Well-appearing, well-nourished, and in no acute distress. HEAD: Normocephalic, atraumatic. EYES: PERRLA and EOMI. ENT: Nares clear, no rhinorrhea or epistaxis. Mucous membranes moist. NECK: Supple. CHEST: Clear to auscultation. No respiratory distress. HEART: Regular rate and rhythm. No murmur heard. Normal peripheral pulses. ABDOMEN: Soft, nontender, nondistended, normal active bowel sounds. EXTREMITIES: Normal range of motion. No edema. SKIN: Warm, dry, no rash. NEURO: No focal deficits. Alert and oriented x2 somewhat confused. PSYCH: Normal mood and affect. Course Vital Signs Vital signs: Vital Signs Temperature 36.6 C 02/09/24 21:03 Pulse Rate 72 02/09/24 21:03 Respiratory Rate 15 02/09/24 21:03 Blood Pressure 151/120 H 02/09/24 21:03 Pulse Oximetry 99 02/09/24 21:03 Oxygen Delivery Room Air 02/09/24 21:03 Temperature 36.6 C 02/09/24 21:03 Pulse Rate 79 02/10/24 02:48 Respiratory Rate 6 L 02/10/24 01:45 Blood Pressure 163/88 H 02/10/24 02:30 Pulse Oximetry 98 02/10/24 02:48 Oxygen Delivery Room Air 02/09/24 21:03 Medical Decision Making [facility] Narrative Medical decision making narrative: Differential diagnosis includes infection, CVA, electrolyte abnormality, dehydration Imaging and laboratory studies were obtained on the patient showed evidence of possible pneumonia on chest x-ray CT abdomen pelvis was obtained as the patient has had some back pain and has felt uncomfortable feeling in his abdomen CT scan of the abdomen pelvis showed no acute abnormality CT head showed evidence of prior CVA Given the findings of possible pneumonia on chest x-ray cultures were obtained and the patient was started on Rocephin Zithromax as the patient is from a community-acquired setting the case will be discussed with hospitalist for admission Vital Signs Vital Signs: Vital Signs Temperature 36.6 C 02/09/24 21:03 Pulse Rate 72 02/09/24 21:03 Respiratory Rate 15 02/09/24 21:03 Blood Pressure 151/120 H 02/09/24 21:03 Pulse Oximetry 99 02/09/24 21:03 Oxygen Delivery Room Air 02/09/24 21:03 Temperature 36.6 C 02/09/24 21:03 Pulse Rate 79 02/10/24 02:48 Respiratory Rate 6 L 02/10/24 01:45 Blood Pressure 163/88 H 02/10/24 02:30 Pulse Oximetry 98 02/10/24 02:48 Oxygen Delivery Room Air 02/09/24 21:03 Lab Data 02/09/24 21:21 02/09/24 21:21 Labs: Lab Results 02/09/24 02/10/24 02/10/24 Range/Units 21:21 00:31 00:48 WBC 7.8 (4.5-10.0) K/mm3 RBC 5.14 (4.6-6.20) M/mm3 Hgb 16.1 (14.0-18.0) g/dL Hct 48.6 (42.0-52.0) % MCV 94.6 (80-100) fl MCH 31.3 (26-34) pg MCHC 33.1 (32-36) g/dl RDW 13.9 (11.5-14.5) % Plt Count 123 L (150-375) k/mm3 MPV 13.1 H (7.4-10.4) fl Immature Gran % (Auto) 0.3 (0-0.5) % Neut % (Auto) 64.8 (45.5-73.1) % Lymph % (Auto) 22.0 (18.3-44.2) % [place] % (Auto) 11.7 H (2.6-8.5) % Eos % (Auto) 0.6 (0-4.4) % Baso % (Auto) 0.6 (0.2-1.2) % Lymph # (Auto) 1.71 (0.9-3.2) K/mm3 [place] # (Auto) 0.9 H (0.1-0.6) K/mm3 Eos # (Auto) 0.1 (0-0.3) K/mm3 Baso # (Auto) 0.1 (0.0-0.1) K/mm3 Abs Immat Gran (auto) 0.02 (0.00-0.031) K/mm3 Absolute Neuts (auto) 5.1 (1.3-6.7) K/mm3 Absolute Nucleated RBC 0.000 (0.0-0.012) K/mm3 Nucleated RBC % 0.0 (0.0-0.2) % % Immature Plt Fraction 12.9 H (0.9-11.2) % Sodium 140 (137-145) mmol/L Potassium 4.2 (3.4-5.0) mmol/L Chloride 105 (98-107) mmol/L Carbon Dioxide 26 (22-30) mmol/L Anion Gap 9 (4-12) mmol/L BUN 20 (9-20) mg/dL Creatinine 1.40 H (0.7-1.3) mg/dL Estim Creat Clear Calc 31 ml/min Estimated GFR 58 L (59 - ) Glucose 104 (65-110) mg/dL Lactic Acid 1.2 (0.7-2.0) mmol/L Calcium 10.3 H (8.4-10.2) mg/dL Magnesium 1.9 (1.6-2.3) mg/dL Total Bilirubin 1.1 (0.2-1.3) mg/dL AST 48 (17-59) U/L ALT 21 (6-50) U/L Alkaline Phosphatase 59 (38-126) U/L Troponin I < 0.012 (0.000-0.034) ng/mL NT-Pro-B Natriuret Pep 119 H (19.9-100) pg/mL Total Protein 9.0 H (6.3-8.2) g/dL Albumin 4.6 (3.5-5.1) g/dL Lipase 205 (23-300) U/L Procalcitonin 0.0 ng/mL Urine Color (Yellow) Urine Appearance (Clear) Urine pH (5.0-9.0) Ur Specific [place] (1.001-1.035) Urine Protein (Negative) mg/dL Urine Glucose (UA) (Negative) mg/dL Urine Ketones (Negative) mg/dL Ur Blood (Man) (Negative) Urine Nitrate (Negative) Urine Bilirubin (Negative) Urine Urobilinogen (<2.0) mg/dL Leukocyte Esterase Rfl (Negative) TEHRESA/UL Urine RBC (0-2) /hpf Urine WBC (0-3) /hpf Ur Squamous Epith Cells (Few) /hpf Urine Bacteria /hpf Urine Casts Influenza A (RT-PCR) Negative (Negative) Influenza B (RT-PCR) Negative (Negative) RSV (RT-PCR) Negative (Negative) SARS-CoV-2 RNA (RT-PCR) Negative (Negative) 02/10/24 Range/Units 02:10 WBC (4.5-10.0) K/mm3 RBC (4.6-6.20) M/mm3 Hgb (14.0-18.0) g/dL Hct (42.0-52.0) % MCV (80-100) fl MCH (26-34) pg MCHC (32-36) g/dl RDW (11.5-14.5) % Plt Count (150-375) k/mm3 MPV (7.4-10.4) fl Immature Gran % (Auto) (0-0.5) % Neut % (Auto) (45.5-73.1) % Lymph % (Auto) (18.3-44.2) % [place] % (Auto) (2.6-8.5) % Eos % (Auto) (0-4.4) % Baso % (Auto) (0.2-1.2) % Lymph # (Auto) (0.9-3.2) K/mm3 [place] # (Auto) (0.1-0.6) K/mm3 Eos # (Auto) (0-0.3) K/mm3 Baso # (Auto) (0.0-0.1) K/mm3 Abs Immat Gran (auto) (0.00-0.031) K/mm3 Absolute Neuts (auto) (1.3-6.7) K/mm3 Absolute Nucleated RBC (0.0-0.012) K/mm3 Nucleated RBC % (0.0-0.2) % % Immature Plt Fraction (0.9-11.2) % Sodium (137-145) mmol/L Potassium (3.4-5.0) mmol/L Chloride (98-107) mmol/L Carbon Dioxide (22-30) mmol/L Anion Gap (4-12) mmol/L BUN (9-20) mg/dL Creatinine (0.7-1.3) mg/dL Estim Creat Clear Calc ml/min Estimated GFR (59 - ) Glucose (65-110) mg/dL Lactic Acid (0.7-2.0) mmol/L Calcium (8.4-10.2) mg/dL Magnesium (1.6-2.3) mg/dL Total Bilirubin (0.2-1.3) mg/dL AST (17-59) U/L ALT (6-50) U/L Alkaline Phosphatase (38-126) U/L Troponin I (0.000-0.034) ng/mL NT-Pro-B Natriuret Pep (19.9-100) pg/mL Total Protein (6.3-8.2) g/dL Albumin (3.5-5.1) g/dL Lipase (23-300) U/L Procalcitonin ng/mL Urine Color Yellow (Yellow) Urine Appearance Clear (Clear) Urine pH 5.5 (5.0-9.0) Ur Specific [place] 1.041 H (1.001-1.035) Urine Protein Trace (Negative) mg/dL Urine Glucose (UA) Negative (Negative) mg/dL Urine Ketones Trace H (Negative) mg/dL Ur Blood (Man) Negative (Negative) Urine Nitrate Negative (Negative) Urine Bilirubin Negative (Negative) Urine Urobilinogen 0.2 (<2.0) mg/dL Leukocyte Esterase Rfl Negative (Negative) THERESA/UL Urine RBC 0-2 (0-2) /hpf Urine WBC 0-5 (0-3) /hpf Ur Squamous Epith Cells None seen (Few) /hpf Urine Bacteria None seen /hpf Urine Casts 0-2 Influenza A (RT-PCR) (Negative) Influenza B (RT-PCR) (Negative) RSV (RT-PCR) (Negative) SARS-CoV-2 RNA (RT-PCR) (Negative) Discharge Plan Discharge Clinical Impression: Altered mental status, Pneumonia Patient Disposition: Still a Patient Condition: Stable Prescriptions: No Action tamsulosin 0.4 mg Capsule 0.4 mg PO HS pregabalin 300 mg Capsule 300 mg PO BID Eliquis 5 mg Tablet 5 mg PO BID meclizine 25 mg tablet 25 mg PO BID PRN (Reason: dizziness) Qty: 20 0RF latanoprost 0.005 % drops 1 drp EACH EYE HS finasteride 5 mg tablet 5 mg PO DAILY Simbrinza 1-0.2 % drops,suspension 1 drp EACH EYE DAILY ascorbic acid (vitamin C) [Vitamin C] 500 mg Tablet 500 mg PO DAILY vitamin B complex Capsule 1 cap PO DAILY cholecalciferol (vitamin D3) [Vitamin D3] 125 mcg (5,000 unit) Tablet 125 mcg PO DAILY Follow-up/Referrals: Hal,Ayush Dominguez MD [Primary Care Provider] -
[2024-02-10] MEDS: AZITHROMYCIN 500 MG/NS 250 ML 500 MG/250 ML BAG 250 MG IVPB ×2 (03:58→20:44)
[2024-02-10] MEDS: SODIUM CHLORIDE 0.9% IV 1,000 ML 500 ML IV CONT (03:58)
--- NOTE | 2024-02-10 04:04 | PC.NURSE ---
Called and added on UDS to urine specimen that was already sent down, spoke with Kellie.
[2024-02-10 04:26] LABS: Amphetamine Screen Urine Negative (Negative); Barbiturate Screen Urine Negative (Negative); Benzodiazepines Screen Urine Negative (Negative); Cannabinoid Screen Urine Negative (Negative); Cocaine Screen Urine Negative (Negative); Methadone Screen Urine Negative (Negative); Opiate Screen Urine Negative (Negative); Phencyclidine Screen Urine Negative (Negative)
--- NOTE | 2024-02-10 05:04 | P.HP_ITS ---
H&P: HPI History of Present Illness Date/Time: 02/10/24 05:04 Chief Complaint: Altered mental status Narrative: 88-year-old male with a history of BPH, CVA, DVT, hypertension. History is taken from chart review and with verbal communication from ER physician. The patient himself is a poor historian due to altered mental status. Presents to [facility] ER with chief complaint of weakness confusion and poor oral intake and a cough over the past 3-4 days. ER evaluation demonstrated heart rate 77, afebrile, BP 141/86, saturating well on room air. Preliminary CT head demonstrated evidence of prior CVA, CT abdomen pelvis without acute abnormality, chest x-ray possible pneumonia. Patient does have rhonchi of the left side of lungs. Patient was given Rocephin and Zithromax. Admitted on 02/10/2024 for community-acquired pneumonia with severe sepsis in the setting of toxic encephalopathy. Review of Systems Review of Systems: All systems reviewed & are unremarkable except as noted in HPI and below (Subjective) ROS unobtainable: Yes unobtainable due to medical condition and unobtainable due to mental status PMFSH Past Medical History Medical History Cholelithiasis (Unknown) History of BPH History of CVA (cerebrovascular accident) History of DVT (deep vein thrombosis) History of hypertension Surgical History Surgical History Previous back surgery Family History Family History Mother Alzheimer disease Sibling Cerebrovascular accident Social History Social History Smoking status: Never smoker Alcohol intake: never Substance use: never Gender identity (if verbalized by the patient): Male Spiritual care concerns: No Meds Home Medications and Allergies Home Medications Medication Instructions Recorded Confirmed Type apixaban 5 mg tablet (Eliquis) 5 mg PO BID 08/29/20 07/29/21 History pregabalin 300 mg capsule 300 mg PO BID 08/29/20 07/29/21 History tamsulosin 0.4 mg capsule 0.4 mg PO HS 08/29/20 07/29/21 History ascorbic acid (vitamin C) 500 mg 500 mg PO DAILY 07/29/21 07/29/21 History tablet (Vitamin C) brinzolamide 1 %-brimonidine 0.2 % 1 drp EACH EYE DAILY 07/29/21 07/29/21 History eye drops,suspension (Simbrinza) cholecalciferol (vitamin D3) 125 125 mcg PO DAILY 07/29/21 07/29/21 History mcg (5,000 unit) tablet (Vitamin D3) finasteride 5 mg tablet 5 mg PO DAILY 07/29/21 07/29/21 History latanoprost 0.005 % eye drops 1 drp EACH EYE HS 07/29/21 07/29/21 History vitamin B complex 1 cap PO DAILY 07/29/21 07/29/21 History meclizine 25 mg tablet 25 mg PO BID PRN dizziness #20 tabs 10/01/23 Rx Allergies Allergy/AdvReac Type Severity Reaction Status Date / Time No Known Allergies Allergy Unknown Verified 02/22/23 18:05 Vital Signs Vital Signs - 24 hr 02/09/24 21:03 02/09/24 23:15 02/09/24 23:00 Temperature 97.8 F Pulse Rate 72 80 75 Respiratory Rate 15 8 L 8 L Blood Pressure 151/120 H 180/102 H Pulse Oximetry 99 99 100 Oxygen Delivery Room Air 02/09/24 23:24 02/09/24 23:30 02/09/24 23:45 Temperature Pulse Rate 73 73 76 Respiratory Rate 10 L 13 8 L Blood Pressure Pulse Oximetry 97 98 95 Oxygen Delivery 02/10/24 00:00 02/10/24 00:39 02/10/24 00:41 Temperature Pulse Rate 77 83 77 Respiratory Rate 20 9 L 12 Blood Pressure 174/97 H Pulse Oximetry 99 99 96 Oxygen Delivery 02/10/24 00:45 02/10/24 01:00 02/10/24 01:01 Temperature Pulse Rate 90 81 82 Respiratory Rate 17 10 L 9 L Blood Pressure 169/99 H Pulse Oximetry 98 100 Oxygen Delivery 02/10/24 01:35 02/10/24 01:45 02/10/24 02:09 Temperature Pulse Rate 81 80 Respiratory Rate 10 L 6 L Blood Pressure Pulse Oximetry 97 98 97 Oxygen Delivery 02/10/24 02:15 02/10/24 02:30 02/10/24 02:31 Temperature Pulse Rate 79 82 82 Respiratory Rate Blood Pressure 163/88 H Pulse Oximetry 98 97 99 Oxygen Delivery 02/10/24 02:48 02/10/24 03:42 02/10/24 04:06 Temperature 98.1 F Pulse Rate 79 79 82 Respiratory Rate 10 L 10 L Blood Pressure 121/59 L Pulse Oximetry 98 97 96 Oxygen Delivery 02/10/24 04:46 02/10/24 05:01 Temperature Pulse Rate 76 77 Respiratory Rate 10 L 10 L Blood Pressure 133/70 141/86 H Pulse Oximetry 99 98 Oxygen Delivery Exam Const: General: comfortable and no acute distress Other: Pleasantly confused. HENMT: Mouth: Yes dry mucous membranes Eyes: Other: Right pupil 2 mm, reactive. Left pupil 5 mm, irregular, nonreactive. Patient reports he had a cataract surgery in the left eye. Resp: Other: Limited participation. No crackles. No wheezes. Moderate rhonchi left lung anna Cardio: Rate: regular rate Rhythm: regular rhythm Heart sounds: no gallops, no murmurs and no rubs GI: Inspection: non-distended GI Palp: Yes Soft to palpation and No Tenderness to palpation present (GI) Auscultation: normal bowel sounds : General: Yes bladder normal to palpation Neuro: Other: Limited participation. No focal deficits identified. Extrem: General: no edema H&P: Results Labs Labs: Short CBC 02/09/24 Range/Units 21:21 WBC 7.8 (4.5-10.0) K/mm3 Hgb 16.1 (14.0-18.0) g/dL Hct 48.6 (42.0-52.0) % Plt Count 123 L (150-375) k/mm3 BMP 02/09/24 21:21 Sodium 140 Potassium 4.2 Chloride 105 Carbon Dioxide 26 BUN 20 Creatinine 1.40 H Glucose 104 Calcium 10.3 H Cardiac Enzymes 02/09/24 Range/Units 21:21 Troponin I < 0.012 (0.000-0.034) ng/mL Liver Function 02/09/24 Range/Units 21:21 Total Bilirubin 1.1 (0.2-1.3) mg/dL AST 48 (17-59) U/L ALT 21 (6-50) U/L Alkaline Phosphatase 59 (38-126) U/L Albumin 4.6 (3.5-5.1) g/dL Urine 02/10/24 Range/Units 02:10 Urine Color Yellow (Yellow) Urine Appearance Clear (Clear) Urine pH 5.5 (5.0-9.0) Ur Specific [place] 1.041 H (1.001-1.035) Urine Protein Trace (Negative) mg/dL Urine Glucose (UA) Negative (Negative) mg/dL Assessment and Plan Assessment and plan (1) Altered mental status: Code(s): R41.82 - Altered mental status, unspecified Status: Acute (2) Pneumonia: Code(s): J18.9 - Pneumonia, unspecified organism Status: Acute (3) Dehydration: Code(s): E86.0 - Dehydration Status: Acute Plan 88-year-old male with a history of BPH, CVA, DVT, hypertension. History is taken from chart review and with verbal communication from ER physician. The patient himself is a poor historian due to altered mental status. Presents to [facility] ER with chief complaint of weakness confusion and poor oral intake and a cough over the past 3-4 days. ER evaluation demonstrated heart rate 77, afebrile, BP 141/86, saturating well on room air. Preliminary CT head demonstrated evidence of prior CVA, CT abdomen pelvis without acute abnormality, chest x-ray possible pneumonia. Patient does have rhonchi of the left side of lungs. Patient was given Rocephin and Zit hromax. Admitted on 02/10/2024 for community-acquired pneumonia with severe sepsis in the setting of toxic encephalopathy. ----- Treat pneumonia monitor mental status. Received volume resuscitation for dehydration. Continue with normal saline 100 cc/hour. Continue ceftriaxone and azithromycin. Blood cultures pending. ----- PTOT. Speech therapy. Dietitian. Ambulate with assistance. Heart healthy diet. SCDs. Full code. Hospitalist MIPS Advance Care Plan I have confirmed that the patient's Advanced Care Plan is present, code status is documented, or surrogate decision maker is listed in patient medical record.: Yes Medication Reconciliation I have utilized all available resources to obtain, update and review the patients current medications (includes all prescriptions, OTC, herbals, cannabis, and nutritional supplements).: Yes
[2024-02-10] MEDS: SODIUM CHLORIDE 0.9% IV 1,000 ML 100 ML IV CONT ×2 (07:15→20:42)
[2024-02-10 11:10] LABS: Hematocrit 46.8 % (42.0-52.0); Hemoglobin 15.3 g/dL (14.0-18.0); Mean Corpuscular HGB Conc 32.7 g/dl (32-36); Mean Corpuscular Hemoglobin 31.2 pg (26-34); Mean Corpuscular Volume 95.5 fl (80-100); Mean Platelet Volume 12.8 fl (7.4-10.4); Platelet Count Result 109 k/mm3 (150-375); Red Cell Distribution Width 13.9 % (11.5-14.5); White Blood Count 9.1 K/mm3 (4.5-10.0)
[2024-02-10 11:21] LABS: Alanine Aminotransferase 18 U/L (6-50); Albumin Level 3.9 g/dL (3.5-5.1); Alkaline Phosphatase 53 U/L (38-126); Anion Gap 10 mmol/L (4-12); Aspartate Amino Transferase 43 U/L (17-59); Bilirubin,Total 0.9 mg/dL (0.2-1.3); Blood Urea Nitrogen 18 mg/dL (9-20); Calcium 9.4 mg/dL (8.4-10.2); Carbon Dioxide 21 mmol/L (22-30); Chloride 107 mmol/L (98-107); Estimated CRCL calculation 36 ml/min; Estimated Glomerular Filt Rate > 60; Glucose 100 mg/dL (65-110); Sodium 138 mmol/L (137-145)
[2024-02-10] MEDS: ASCORBIC ACID 500 MG TABLET PO (11:32)
[2024-02-10] MEDS: PREGABALIN (*CRX) 75 MG CAPSULE 300 MG PO ×2 (11:32→17:26)
[2024-02-10] MEDS: APIXABAN 2.5 MG TABLET PO ×2 (11:32→20:45)
[2024-02-10] MEDS: FINASTERIDE 5 MG TABLET PO (11:32)
[2024-02-10] MEDS: CHOLECALCIFEROL 5,000 UNITS TABLET 5000 UNITS BY MOUTH (11:32)
[2024-02-10] MEDS: VITAMIN B COMPLEX CAPSULE 1 CAP PO (11:32)
--- NOTE | 2024-02-10 11:56 | PCSTNOTE ---
Please refer to the Bedside Swallow Evaluation in the EMR. Please note, silent aspiration cannot be ruled out at bedside.
--- NOTE | 2024-02-10 15:12 | P.PNCROSS_ITS ---
Event Note Event Note Event Note: Patient seen and assessed by previous provider same day. Upon follow-up assess ment patient in no acute distress, pleasantly confused alert and oriented x1. Patient is able to follow commands if directed to do so however needs assistance with and directions for ADLS, toileting and eating. Patient currently on treatment for Pneumonia denies any SOB, CP, N/V. Patient with normal WBC and afebrile overnight. Labs, vitals, and examine otherwise unremarkable. PT/OT evaluation pending for recommendations however spouse wants him to return home. Will continue with current treatment and plan on discharge to home tomorrow if no events will recommend home health or placement to a memory care facility.
[2024-02-10] MEDS: TAMSULOSIN HCL 0.4 MG CAPSULE PO (20:45)
[2024-02-10] MEDS: ACETAMINOPHEN 325 MG TABLET 650 MG PO (20:45)
[2024-02-11] MEDS: SODIUM CHLORIDE 0.9% IV 1,000 ML 100 ML IV CONT ×2 (02:42→10:02)
[2024-02-11 04:09] VITALS: BP 122/65; PULSE 67; RESP 18; TEMP 36.6; O2SAT 98
[2024-02-11 06:19] LABS: Hemoglobin 13.4 g/dL (14.0-18.0); Immature Platelet Fraction Pct 11.4 % (0.9-11.2); Mean Corpuscular HGB Conc 33.5 g/dl (32-36); Mean Corpuscular Hemoglobin 31.8 pg (26-34); Mean Corpuscular Volume 94.8 fl (80-100); Mean Platelet Volume 13.2 fl (7.4-10.4); Platelet Count Result 104 k/mm3 (150-375); Red Blood Count 4.22 M/mm3 (4.6-6.20); Red Cell Distribution Width 14.1 % (11.5-14.5); White Blood Count 5.6 K/mm3 (4.5-10.0)
[2024-02-11 06:29] LABS: Alanine Aminotransferase 17 U/L (6-50); Albumin Level 3.1 g/dL (3.5-5.1); Alkaline Phosphatase 45 U/L (38-126); Anion Gap 7 mmol/L (4-12); Aspartate Amino Transferase 37 U/L (17-59); Bilirubin,Total 0.6 mg/dL (0.2-1.3); Blood Urea Nitrogen 17 mg/dL (9-20); Calcium 8.6 mg/dL (8.4-10.2); Carbon Dioxide 22 mmol/L (22-30); Chloride 109 mmol/L (98-107); Estimated CRCL calculation 36 ml/min; Estimated Glomerular Filt Rate > 60; Glucose 90 mg/dL (65-110); Potassium 3.6 mmol/L (3.4-5.0); Sodium 138 mmol/L (137-145)
[2024-02-11] MEDS: PREGABALIN (*CRX) 75 MG CAPSULE 300 MG PO (08:57)
[2024-02-11] MEDS: FINASTERIDE 5 MG TABLET PO (08:57)
[2024-02-11] MEDS: ASCORBIC ACID 500 MG TABLET PO (08:57)
[2024-02-11] MEDS: CHOLECALCIFEROL 5,000 UNITS TABLET 5000 UNITS BY MOUTH (08:57)
[2024-02-11] MEDS: VITAMIN B COMPLEX CAPSULE 1 CAP PO (08:57)
[2024-02-11] MEDS: APIXABAN 2.5 MG TABLET PO (10:58)
--- NOTE | 2024-02-11 12:36 | P.DS_ITS ---
DS: Admitting Diagnosis Discharge Date 02/11/2024 Admitting Diagnosis Pneumonia DS: Discharge Diagnosis Discharge Diagnosis (1) Altered mental status: Code(s): R41.82 - Altered mental status, unspecified Status: Acute (2) Pneumonia: Code(s): J18.9 - Pneumonia, unspecified organism Status: Acute (3) Dehydration: Code(s): E86.0 - Dehydration Status: Acute Plan Disposition: Patient discharged to home with DS: Summary Hospital Course Reason for hospitalization: Pneumonia Hospital Course: patient was an 88-year-old male who had been admitted to the medical unit for generalized weakness and confusion with poor oral intake secondary to pneumonia. Patient with history CVA, dementia, and hypertension. patient's had reported worsening confusion and need for redirection at home. Patient was initiated on Rocephin and azithromycin for CAP, as well DuoNebs. patient remained afebrile normal white count during admission and did not require any supplemental oxygen. CT head had shown an old infarct in the left thalamus and extensive cerebral white matter disease. Patient was seen by PT OT and cleared for discharge back to home no rehabilitation requirements needed however did speak with regarding patient's worsening dementia and need for further evaluation. Patient needs cues to assist with eating and toileting provided patient's with closer primary care physician as well neurology contact. was requesting patient return home patient in no acute distress day discharge with overall improvement was alert oriented times 1-2 and able to answer questions appropriately. he was discharged home with on oral antibiotics. Status at Discharge Functional status at discharge: uses cane/walker Overall status at discharge: patient is progressing back to baseline Time Spent with Patient Time attestation: Total time spent providing and/or coordinating discharge services: Time spent: Greater than 30 minutes Exam Const: General: comfortable and no acute distress Other: Pleasantly confused. HENMT: Mouth: Yes dry mucous membranes Eyes: Other: Right pupil 2 mm, reactive. Left pupil 5 mm, irregular, nonreactive. Patient reports he had a cataract surgery in the left eye. Resp: Other: Limited participation. No crackles. No wheezes. Moderate rhonchi left lung anna Cardio: Rate: regular rate Rhythm: regular rhythm Heart sounds: no gallops, no murmurs and no rubs GI: Inspection: non-distended Auscultation: normal bowel sounds : General: Yes bladder normal to palpation Neuro: Other: Limited participation. No focal deficits identified. Extrem: General: no edema DS: Data Data Completed and Pending Labs on day of discharge: Labs from last 24 hours 02/11/24 05:53 WBC 5.6 RBC 4.22 L Hgb 13.4 L Hct 40.0 L MCV 94.8 MCH 31.8 MCHC 33.5 RDW 14.1 Plt Count 104 L MPV 13.2 H % Immature Plt Fraction 11.4 H Sodium 138 Potassium 3.6 Chloride 109 H Carbon Dioxide 22 Anion Gap 7 BUN 17 Creatinine 1.20 Estim Creat Clear Calc 36 Estimated GFR > 60 Glucose 90 Calcium 8.6 Total Bilirubin 0.6 AST 37 ALT 17 Alkaline Phosphatase 45 Total Protein 6.0 L Albumin 3.1 L Preliminary micro results at discharge 02/10/24 00:48 Blood Culture - Preliminary Blood 02/10/24 00:38 Blood Culture - Preliminary Blood Imaging Radiologist's impression: Head CT EXAMINATION: CT brain wo con DATE: 02/10/2024 00:29 INDICATION: Altered mental status. TECHNIQUE: Computed tomography (CT) of the head was performed without intravenous contrast. The mA was adjusted according to patient size. Iterative reconstruction technique was employed. The dose-length product was 681.00 mGy- cm. COMPARISON: Head CT 10/01/2023 FINDINGS: There is an old infarct in left thalamus. There are scattered areas of low attenuation in the cerebral white matter. There is no intracranial hemorrhage, acute infarction, or abnormal intracranial mass lesion. The ventricles are normal in size. There are likely changes of ocular lens replacement surgeries. There is mucosal thickening in the paranasal sinuses. The mastoid air cells are normal. IMPRESSION: 1. Old infarct in the left thalamus. 2. Stable extensive nonspecific cerebral white matter disease, which likely represents chronic small vessel ischemic disease. EXAMINATION: CT abdomen pelvis w con DATE: 02/10/2024 00:30 INDICATION: Abdominal pain. Back pain. TECHNIQUE: Computed tomography (CT) of the abdomen and pelvis was performed with 100 mL Omnipaque 350 intravenous contrast. Automated exposure control and iterative reconstruction technique were employed. The dose-length product was 744.18 mGy-cm. COMPARISON: CT abdomen and pelvis 07/29/21 FINDINGS: The visualized portions of the lung bases demonstrate mild atelectasis. No pleural effusion. The heart size is normal. No pericardial effusion. There is bilateral gynecomastia. There are cysts in the liver measuring up to 12 mm. There are gallstones in the gallbladder, which is normal in size. The spleen, pancreas, and adrenal glands are normal. There is a 5.2 cm cyst in right kidney. There is cortical thinning of left kidney. There is a 1.8 cm cyst in left kidney. There is an umbilical hernia containing fat. The prostate is severely enlarged. There is diverticulosis of the colon without evidence of diverticulitis. The appendix is normal. There are no dilated loops of bowel. There are no pathologically enlarged lymph nodes. There is no free intraperitoneal fluid. There is severe thoracic and lumbar spondylosis. IMPRESSION: 1. Umbilical hernia containing fat. Discharge Plan Discharge Attending physician on discharge: Juan Cazares Consulting providers: Eloy Phipps; Prasanth Hernandez; aXvi Wong V. Discharging Clinician: Lena Santos Anticipated Discharge Date/Time: 02/11/24 12:19 Patient Disposition: Home, Self-Care Activity: may shower, unlimited and as tolerated Diet: heart healthy Discharge Instructions: You are being discharged after treatment for community acquired Pneumonia. I have prescribed oral antibiotics please take as prescribed. You are experiencing more memory loss and will need re-direction for tasks likely due to progressing Dementia. I will recommend a follow-up with your primary care physician and referral to a neurologist. I understand you are wanting to change primary care providers a list has been provided by case coordination to assist please call to establish as a new patient. How can you care for yourself at home? ? Keep track of any new symptoms or changes in your symptoms. ? Rest until you feel better. ? Be safe with medicines. Take your medicines exactly as prescribed. Call your doctor if you think you are having a problem with your medicine. ? Do not drive after taking a prescription pain medicine. ? Ensure to follow-up with primary care physician as indicated and provide updated medication list provided to you at discharge. When should you call for help? Call 911 anytime you think you may need emergency care. For example, call if: ? You passed out (lost consciousness). Call your doctor now or seek immediate medical care if: ? You have new symptoms like fever, difficulty breathing, Chest pain, vomiting, or rash. ? You have new or different pain. ? You are confused and are having trouble thinking clearly. ? Your symptoms are getting worse. Watch closely for changes in your health, and be sure to contact your doctor if: ? You do not get better as expected. Patient Instructions: Antibiotic Form, Dementia (GEN), Community Acquired Pneumonia (DC) Patient Language: Faroese Stand Alone Forms: General Discharge Information Follow-up/Referrals: Riri Chambers MD [Physician] - Call for Appointment (Dementia) Discharge Medications: New amlodipine 5 mg tablet 5 mg PO DAILY Qty: 30 0RF azithromycin 250 mg tablet 250 mg PO DAILY Qty: 4 0RF Continued tamsulosin 0.4 mg Capsule 0.4 mg PO HS pregabalin 300 mg Capsule 300 mg PO BID Eliquis 5 mg Tablet 2.5 mg PO BID meclizine 25 mg tablet 25 mg PO BID PRN (Reason: dizziness) Qty: 20 0RF latanoprost 0.005 % drops 1 drp EACH EYE HS finasteride 5 mg tablet 5 mg PO DAILY Simbrinza 1-0.2 % drops,suspension 1 drp EACH EYE DAILY ascorbic acid (vitamin C) [Vitamin C] 500 mg Tablet 500 mg PO DAILY vitamin B complex Capsule 1 cap PO DAILY cholecalciferol (vitamin D3) [Vitamin D3] 125 mcg (5,000 unit) Tablet 125 mcg PO DAILY Discontinued lisinopril 5 mg tablet 5 mg PO DAILY Date of admission: 02/10/24 03:54 Primary Care Provider: Hal,Ayush Dominguez Admitting Provider: Alicia Grimaldo Attending physician on admission: Lena Santos Condition: Stable Quality VTE Prophylaxis VTE prophylaxis: pharmacologic ordered -Patient's previous records reviewed on admission -ER notes reviewed in detail on admission -discussed all findings and current treatment plan with patient/Family/POA -Consultations reviewed for recommendations -Patient's disposition for safe discharge discussed with director case Dictation performed by [employer] direct speech recognition software, therefore senior counsel variants and typographical errors may occur. Hospitalist MIPS Heart Failure (Exclusion) Patient has history of Heart Transplant or Left Ventricular Assistive Device?: No IF YES, STOP HERE Heart Failure (Qualifier) Patient has current or prior documentation of LVEF less than or equal to 40%, or mod/servere depressed LVSF?: No IF NO, STOP HERE
== END 2024-02-11 14:15 | disposition home or self-care (01) ==
LOC: ANHED 02-10 03:23 → ANH2MED 02-10 04:47
PROVIDERS: Emergency Medicine; Admitting Provider General Practice; Emergency Provider Emergency Medicine; PCP Internal Medicine Infectious Disease; Visit Provider Nurse Practitioner Family
DX: J18.9 Pneumonia, unspecified organism (principal); R65.20 Severe sepsis without septic shock; G92.9 Unspecified toxic encephalopathy; R41.82 Altered mental status, unspecified; E86.0 Dehydration; R53.1 Weakness; I10 Essential (primary) hypertension; N40.0 Benign prostatic hyperplasia without lower urinary tract symptoms; Z79.01 Long term (current) use of anticoagulants; Z86.73 Personal history of transient ischemic attack (TIA), and cerebral infarction without residual deficits; Z86.718 Personal history of other venous thrombosis and embolism; Z20.822 Contact with and (suspected) exposure to COVID-19; Z79.899 Other long term (current) drug therapy
CPT/HCPCS: 36415; 70450; 71046; 74177; 80053; 80307; 81001; 83605; 83690; 83735; 83880; 84145; 84484; 85025; 85027; 85055; 87040; 87637; 92610; 93005; 96361; 96365; 96367; 96376; 97161; 97165; 99285; A9270; G0378; J0456; J0696; J7030; Q9967